=== PATIENT | male | born 1965 | race Hispanic/Latino ===

== ENCOUNTER → 2018-03-16 | Outpatient (CLI) | payer MEDICAID | END | disposition home or self-care (01) | LOC: RAH 09:23 | PROVIDERS: ATTEND Nurse Practitioner Family | DX: M79.671 Pain in right foot (principal); E11.9 Type 2 diabetes mellitus without complications; I10 Essential (primary) hypertension; E78.5 Hyperlipidemia, unspecified; Z87.891 Personal history of nicotine dependence | CPT/HCPCS: 73630 ==

== ENCOUNTER 2018-09-22 20:19 | Emergency (ER) | payer MEDICAID ==
[2018-09-22 20:33] LABS: BASOPHILS % (AUTO) 0.7 % (0.0-5.0); EOSINOPHILS % (AUTO) 1.3 % (0.0-8.0); HEMATOCRIT 43.3 % (42-54); LYMPHOCYTES % (AUTO) 27.5 % (21.0-51.0); MEAN CORPUSCULAR HEMOGLOBIN 28.5 pg (27.0-33.0); MEAN CORPUSCULAR HGB CONC 33.7 g/dL (32.0-36.0); MEAN CORPUSCULAR VOLUME 84.7 fL (79-99); MONOCYTES % (AUTO) 12.7 % (3.0-13.0); NEUTROPHILS % (AUTO) 57.8 % (40.0-77.0); PLATELET COUNT (AUTO) 195 K/uL (130-400); RED BLOOD CELL COUNT(AUTO) 5.11 MIL/uL (4.50-6.20); RED CELL DISTRIBUTION WIDTH 13.7 % (11.0-15.5); WHITE BLOOD COUNT (AUTO) 6.6 K/uL (4.8-10.8)
[2018-09-22] MEDS ORDERED: ASPIRIN 325 MG TABLET ONE (20:39)
[2018-09-22 20:47] LABS: INR 0.91 (0.85-1.15); PARTIAL THROMBOPLASTIN TIME 26.5 SEC (26.3-35.5); PROTHROMBIN TIME 9.6 SEC (9.6-11.6)
[2018-09-22 20:48] LABS: CREATININE 1.1 mg/dL (0.5-1.5); POTASSIUM 3.9 mmol/L (3.5-5.1)
[2018-09-22 20:49] LABS: B-TYPE NATRIURETIC PEPTIDE 24 pg/mL (0-100)
[2018-09-22 20:53] LABS: ALBUMIN 3.6 g/dL (3.5-5.0); BILIRUBIN,TOTAL 0.3 mg/dL (0.2-1.0); TOTAL PROTEIN, SERUM 7.1 g/dL (6.0-8.3)
[2018-09-22 21:25] LABS: APPEARANCE,URINE Clear (CLEAR); BILIRUBIN,URINE Negative (NEGATIVE); COLOR,URINE Yellow (YELLOW); GLUCOSE, URINE (UA) Negative (NEGATIVE); KETONES,URINE Negative (NEGATIVE); LEUKOCYTE ESTERASE ,URINE Negative (NEGATIVE); NITRATE,URINE Negative (NEGATIVE); OCCULT BLOOD,URINE Negative (NEGATIVE); PROTEIN,URINE Negative (NEGATIVE)
[2018-09-22 21:31] LABS: AMPHET/METH SCREEN,URINE NEGATIVE (NEGATIVE); BARBITURATE SCREEN, URINE NEGATIVE (NEGATIVE); BENZODIAZEPINES SCREEN,URINE NEGATIVE (NEGATIVE); CANNABINOID SCREEN,URINE NEGATIVE (NEGATIVE); COCAINE SCREEN,URINE NEGATIVE (NEGATIVE); OPIATE SCREEN,URINE NEGATIVE (NEGATIVE); PHENCYCLIDINE SCREEN,URINE NEGATIVE (NEGATIVE)
[2018-09-22] MEDS ORDERED: HYOSCYAMINE SULFATE 0.125 MG TAB.SUBL SL ONE (21:58)
[2018-09-22] MEDS ORDERED: FAMOTIDINE 20MG TAB 20 MG TAB ONE (21:58)
== END 2018-09-22 22:29 | disposition home or self-care (01) ==
LOC: EDH 20:19
DX: I10 Essential (primary) hypertension (principal); E11.9 Type 2 diabetes mellitus without complications; R10.9 Unspecified abdominal pain; E78.5 Hyperlipidemia, unspecified; Z98.890 Other specified postprocedural states
CPT/HCPCS: 36415; 71045; 76705; 80053; 80305; 81003; 82150; 82550; 83880; 84484; 85025; 85610; 85730; 93005

== ENCOUNTER 2018-11-16 13:18 | Emergency (ER) | payer MEDICAID ==
[2018-11-16] MEDS ORDERED: ASPIRIN 325MG EC TAB 325 MG TABLET.DR PO ONE (13:51)
[2018-11-16] MEDS ORDERED: NITROGLYCERIN 1GM/1 INCH PACKET TD ONE (13:52)
[2018-11-16 14:27] LABS: BASOPHILS % (AUTO) 0.7 % (0.0-5.0); EOSINOPHILS % (AUTO) 1.6 % (0.0-8.0); HEMATOCRIT 42.6 % (42-54); LYMPHOCYTES % (AUTO) 22.4 % (21.0-51.0); MEAN CORPUSCULAR HEMOGLOBIN 29.2 pg (27.0-33.0); MEAN CORPUSCULAR HGB CONC 33.8 g/dL (32.0-36.0); MEAN CORPUSCULAR VOLUME 86.2 fL (79-99); MONOCYTES % (AUTO) 11.8 % (3.0-13.0); NEUTROPHILS % (AUTO) 63.5 % (40.0-77.0); NUCLEATED RED BLOOD CELLS 0.1 % (0.0-0.19); PLATELET COUNT (AUTO) 186 K/uL (130-400); RED BLOOD CELL COUNT(AUTO) 4.94 MIL/uL (4.50-6.20); RED CELL DISTRIBUTION WIDTH 14.1 % (11.0-15.5)
[2018-11-16 14:38] LABS: CREATININE 0.8 mg/dL (0.5-1.5); POTASSIUM 3.8 mmol/L (3.5-5.1)
[2018-11-16 14:40] LABS: INR 0.95 (0.85-1.15); PARTIAL THROMBOPLASTIN TIME 27.7 SEC (26.3-35.5)
[2018-11-16 14:43] LABS: APPEARANCE,URINE Clear (CLEAR); BILIRUBIN,URINE Negative (NEGATIVE); COLOR,URINE Yellow (YELLOW); GLUCOSE, URINE (UA) Negative (NEGATIVE); KETONES,URINE Negative (NEGATIVE); LEUKOCYTE ESTERASE ,URINE Negative (NEGATIVE); NITRATE,URINE Negative (NEGATIVE); OCCULT BLOOD,URINE Negative (NEGATIVE); PROTEIN,URINE Negative (NEGATIVE)
[2018-11-16 14:43] LABS: ALBUMIN 3.6 g/dL (3.5-5.0); BILIRUBIN,TOTAL 0.3 mg/dL (0.2-1.0); TOTAL PROTEIN, SERUM 7.2 g/dL (6.0-8.3)
[2018-11-16 14:59] LABS: B-TYPE NATRIURETIC PEPTIDE 26 pg/mL (0-100)
== END 2018-11-16 16:12 | disposition home or self-care (01) ==
LOC: EDH 13:18
DX: R07.89 Other chest pain (principal); R51 Headache; R06.02 Shortness of breath
CPT/HCPCS: 36415; 71045; 80053; 81003; 82550; 83605; 83880; 84484; 85025; 85610; 85730; 87040; 87804; 93005

== ENCOUNTER 2019-04-25 04:59 | Emergency (ER) | payer MEDICAID ==
[2019-04-25 05:43] LABS: APPEARANCE,URINE Clear (CLEAR); BILIRUBIN,URINE Negative (NEGATIVE); COLOR,URINE Yellow (YELLOW); GLUCOSE, URINE (UA) Negative (NEGATIVE); KETONES,URINE Negative (NEGATIVE); LEUKOCYTE ESTERASE ,URINE Negative (NEGATIVE); NITRATE,URINE Negative (NEGATIVE); OCCULT BLOOD,URINE Negative (NEGATIVE); PROTEIN,URINE Negative (NEGATIVE)
[2019-04-25] MEDS ORDERED: IBUPROFEN 400 MG TABLET ONE (06:09)
[2019-04-25] MEDS ORDERED: DOCUSATE SODIUM 100 MG CAP PO ONE (06:09)
== END 2019-04-25 06:57 | disposition home or self-care (01) ==
LOC: EDH 04:59
DX: K43.9 Ventral hernia without obstruction or gangrene (principal); K59.00 Constipation, unspecified; I10 Essential (primary) hypertension; E78.5 Hyperlipidemia, unspecified; E11.9 Type 2 diabetes mellitus without complications
CPT/HCPCS: 74018; 81003

== ENCOUNTER 2019-06-02 07:22 | Emergency (ER) | payer MEDICAID | END 2019-06-02 10:51 | disposition home or self-care (01) | LOC: EDH 07:22 | DX: S80.01XA Contusion of right knee, initial encounter (principal); E78.5 Hyperlipidemia, unspecified; I10 Essential (primary) hypertension; E11.9 Type 2 diabetes mellitus without complications; W01.0XXA Fall on same level from slipping, tripping and stumbling without subsequent striking against object, initial encounter; Y93.01 Activity, walking, marching and hiking; Y92.89 Other specified places as the place of occurrence of the external cause; Y99.8 Other external cause status | CPT/HCPCS: 73562; 73700 ==

== ENCOUNTER 2019-08-06 13:55 | Emergency (ER) | payer MEDICAID ==
[2019-08-06] MEDS ORDERED: ASPIRIN 325 MG TABLET ONE (14:40)
[2019-08-06 14:44] LABS: BASOPHILS % (AUTO) 0.3 % (0.0-5.0); EOSINOPHILS % (AUTO) 1.4 % (0.0-8.0); HEMATOCRIT 44.2 % (42-54); LYMPHOCYTES % (AUTO) 17.5 % (21.0-51.0); MEAN CORPUSCULAR HEMOGLOBIN 27.7 pg (27.0-33.0); MEAN CORPUSCULAR HGB CONC 32.6 g/dL (32.0-36.0); MONOCYTES % (AUTO) 10.7 % (3.0-13.0); NEUTROPHILS % (AUTO) 69.9 % (40.0-77.0); PLATELET COUNT (AUTO) 193 K/uL (130-400); RED CELL DISTRIBUTION WIDTH 12.9 % (11.0-15.5); WHITE BLOOD COUNT (AUTO) 6.3 K/uL (4.8-10.8)
[2019-08-06 14:56] LABS: CREATININE 0.8 mg/dL (0.5-1.5)
[2019-08-06 14:59] LABS: INR 0.94 (0.85-1.15); PARTIAL THROMBOPLASTIN TIME 26.6 SEC (26.3-35.5); PROTHROMBIN TIME 9.9 SEC (9.6-11.6)
[2019-08-06 15:00] LABS: ALBUMIN 3.6 g/dL (3.5-5.0); BILIRUBIN,TOTAL 0.2 mg/dL (0.2-1.0); TOTAL PROTEIN, SERUM 7.5 g/dL (6.0-8.3)
== END 2019-08-06 16:12 | disposition home or self-care (01) ==
LOC: EDH 13:55
DX: R07.89 Other chest pain (principal); I10 Essential (primary) hypertension; E11.9 Type 2 diabetes mellitus without complications; E78.5 Hyperlipidemia, unspecified; E66.9 Obesity, unspecified
CPT/HCPCS: 36415; 71045; 80053; 82550; 84484; 85025; 85610; 85730; 93005

== ENCOUNTER 2020-07-05 16:32 | Emergency (ER) | payer MEDICAID ==
[2020-07-05 17:14] LABS: BASOPHILS % (AUTO) 0.3 % (0.0-5.0); HEMATOCRIT 47.1 % (42-54); LYMPHOCYTES % (AUTO) 22.3 % (21.0-51.0); MEAN CORPUSCULAR HEMOGLOBIN 27.2 pg (27.0-33.0); MEAN CORPUSCULAR HGB CONC 33.1 g/dL (32.0-36.0); MEAN CORPUSCULAR VOLUME 82.1 fL (79-99); MONOCYTES % (AUTO) 11.9 % (3.0-13.0); NEUTROPHILS % (AUTO) 63.2 % (40.0-77.0); PLATELET COUNT (AUTO) 137 K/uL (130-400); RED BLOOD CELL COUNT(AUTO) 5.74 MIL/uL (4.50-6.20); RED CELL DISTRIBUTION WIDTH 12.4 % (11.0-15.5); WHITE BLOOD COUNT (AUTO) 3.5 K/uL (4.8-10.8)
[2020-07-05 17:33] LABS: CREATININE 0.8 mg/dL (0.5-1.5); POTASSIUM 4.2 mmol/L (3.5-5.1)
[2020-07-05 17:44] LABS: ALBUMIN 3.6 g/dL (3.5-5.0); BILIRUBIN,TOTAL 0.3 mg/dL (0.2-1.0); TOTAL PROTEIN, SERUM 7.9 g/dL (6.0-8.3)
[2020-07-05 18:05] LABS: APPEARANCE,URINE Clear (CLEAR); BILIRUBIN,URINE Negative (NEGATIVE); COLOR,URINE Yellow (YELLOW); GLUCOSE, URINE (UA) >=1000 mg/dL (NEGATIVE); KETONES,URINE Trace mg/dL (NEGATIVE); LEUKOCYTE ESTERASE ,URINE Negative (NEGATIVE); NITRATE,URINE Negative (NEGATIVE); OCCULT BLOOD,URINE Negative (NEGATIVE); PROTEIN,URINE Negative (NEGATIVE)
[2020-07-05 18:32] LABS: BACTERIA,URINE Few /HPF (None Seen); MUCUS,URINE Moderate LPF (None Seen); SQUAMOUS EPITHELIAL CELL,UR Few /HPF (0-2); WBC,URINE 0-1 /HPF (0-1)
[2020-07-05] MEDS ORDERED: ACETAMINOPHEN 325 MG TAB ONE (18:41)
[2020-07-05] MEDS ORDERED: AZITHROMYCIN 250 MG TABLET PO ONE (19:33)
== END 2020-07-05 20:07 | disposition home or self-care (01) ==
LOC: EDH 16:32
DX: U07.1 COVID-19 (principal); I10 Essential (primary) hypertension; E78.5 Hyperlipidemia, unspecified; E11.9 Type 2 diabetes mellitus without complications; E66.01 Morbid (severe) obesity due to excess calories; Z68.44 Body mass index [BMI] 60.0-69.9, adult; Z87.891 Personal history of nicotine dependence
CPT/HCPCS: 36415; 71045; 80053; 81001; 84484; 85025; 87426; 93005

== ENCOUNTER 2020-10-23 08:07 | Emergency (ER) | payer MEDICAID ==
[2020-10-23] MEDS ORDERED: KETOROLAC TROMETHAMINE 60 MG/2 ML VIAL ONE (08:53)
[2020-10-23] MEDS ORDERED: ACETAMINOPHEN EXTRA STRENGTH 500 MG TABLET ONE (08:54)
[2020-10-23] MEDS ORDERED: LIDOCAINE 5% TOPICAL PATCH TP ONE (09:49)
== END 2020-10-23 10:10 | disposition home or self-care (01) ==
LOC: EDH 08:07
DX: M79.651 Pain in right thigh (principal); E11.9 Type 2 diabetes mellitus without complications; E78.5 Hyperlipidemia, unspecified; I10 Essential (primary) hypertension
CPT/HCPCS: 73502; 96372; 99283; J1885

== ENCOUNTER 2021-09-22 22:08 | Emergency (ER) | payer MEDICAID ==
[~2021-09-22] VITALS: Ht 167.6 cm; Wt 177.4 kg
[2021-09-22] MEDS: 0.9%NACL 1000ML 1,000 ML IV ONE (22:57)
[2021-09-22 23:01] LABS: BASOPHILS % (AUTO) 0.3 % (0.0-5.0); EOSINOPHILS % (AUTO) 1.2 % (0.0-8.0); LYMPHOCYTES % (AUTO) 29.3 % (21.0-51.0); MEAN CORPUSCULAR HEMOGLOBIN 27.4 pg (27.0-33.0); MEAN CORPUSCULAR VOLUME 82.9 fL (79-99); MONOCYTES % (AUTO) 11.7 % (3.0-13.0); NEUTROPHILS % (AUTO) 57.3 % (40.0-77.0); PLATELET COUNT (AUTO) 193 K/uL (130-400); RED BLOOD CELL COUNT(AUTO) 5.55 MIL/uL (4.50-6.20); RED CELL DISTRIBUTION WIDTH 12.7 % (11.0-15.5); WHITE BLOOD COUNT (AUTO) 6.5 K/uL (4.8-10.8)
[2021-09-22 23:05] LABS: APPEARANCE,URINE Clear (CLEAR); BILIRUBIN,URINE Negative (NEGATIVE); COLOR,URINE Yellow (YELLOW); GLUCOSE, URINE (UA) Negative (NEGATIVE); KETONES,URINE Negative (NEGATIVE); LEUKOCYTE ESTERASE ,URINE Negative (NEGATIVE); NITRATE,URINE Negative (NEGATIVE); OCCULT BLOOD,URINE Negative (NEGATIVE); PH,URINE 5.5 (5.0-8.0); PROTEIN,URINE Negative (NEGATIVE)
[2021-09-22 23:20] LABS: CREATININE 0.8 mg/dL (0.5-1.5); POTASSIUM 4.1 mmol/L (3.5-5.1)
[2021-09-22 23:24] LABS: ALBUMIN 3.5 g/dL (3.5-5.0); BILIRUBIN,TOTAL 0.3 mg/dL (0.2-1.0); TOTAL PROTEIN, SERUM 7.3 g/dL (6.0-8.3)
[2021-09-22] MEDS ORDERED: IOHEXOL 350 MG/ML 100ML INFUS..BTL IV ONE (23:32)
[2021-09-23] MEDS: MORPHINE 4 MG SYG IVP ONE (00:06)
[2021-09-23] MEDS: ONDANSETRON 4MG INJ IVP ONE (00:06)
[2021-09-23] MEDS ORDERED: HYOS0.124 SL (01:06)
[2021-09-23] MEDS ORDERED: FAMO-136 PO (01:06)
[2021-09-23 01:24] VITALS: BP 110/66
== END 2021-09-23 01:27 | disposition home or self-care (01) ==
LOC: EDH 22:08
DX: R10.33 Periumbilical pain (principal); E11.9 Type 2 diabetes mellitus without complications; I10 Essential (primary) hypertension
CPT/HCPCS: 36415; 74177; 80053; 81003; 83690; 85025; 96374; 96375; 99285; J2270; J2405; Q9967

== ENCOUNTER 2021-12-01 16:26 | Emergency (ER) | payer MEDICAID ==
[~2021-12-01] VITALS: Ht 167.6 cm; Wt 155.6 kg
[~2021-12-01 16:26] MED LIST: FAMO-136 PO; HYOS0.124 SL
[2021-12-01] MEDS ORDERED: ONDANSETRON 4MG INJ IVP ONE (17:00)
[2021-12-01] MEDS ORDERED: KETOROLAC 30MG VIAL (30MG/ML) IVP ONE (17:00)
[2021-12-01 17:15] LABS: BASOPHILS % (AUTO) 0.5 % (0.0-5.0); EOSINOPHILS % (AUTO) 1.1 % (0.0-8.0); HEMATOCRIT 47.2 % (42-54); LYMPHOCYTES % (AUTO) 27.3 % (21.0-51.0); MEAN CORPUSCULAR HEMOGLOBIN 27.8 pg (27.0-33.0); MEAN CORPUSCULAR HGB CONC 33.5 g/dL (32.0-36.0); MEAN CORPUSCULAR VOLUME 83.1 fL (79-99); MONOCYTES % (AUTO) 10.8 % (3.0-13.0); NEUTROPHILS % (AUTO) 59.8 % (40.0-77.0); PLATELET COUNT (AUTO) 207 K/uL (130-400); RED BLOOD CELL COUNT(AUTO) 5.68 MIL/uL (4.50-6.20); RED CELL DISTRIBUTION WIDTH 12.9 % (11.0-15.5); WHITE BLOOD COUNT (AUTO) 6.5 K/uL (4.8-10.8)
[2021-12-01 17:16] LABS: APPEARANCE,URINE Clear (CLEAR); BILIRUBIN,URINE Negative (NEGATIVE); COLOR,URINE Yellow (YELLOW); GLUCOSE, URINE (UA) >=1000 mg/dL (NEGATIVE); KETONES,URINE Negative (NEGATIVE); LEUKOCYTE ESTERASE ,URINE Negative (NEGATIVE); NITRATE,URINE Negative (NEGATIVE); OCCULT BLOOD,URINE Negative (NEGATIVE); PROTEIN,URINE Negative (NEGATIVE); UROBILINOGEN,URINE 0.2 mg/dL (0.2-1.0)
[2021-12-01 17:24] LABS: BACTERIA,URINE None Seen /HPF (None Seen); RBC,URINE 0-1 /HPF (0-1); WBC,URINE 0-1 /HPF (0-1)
[2021-12-01 17:26] LABS: SQUAMOUS EPITHELIAL CELL,UR Few /HPF (0-2)
[2021-12-01 17:29] LABS: CREATININE 0.9 mg/dL (0.5-1.5)
[2021-12-01 17:38] LABS: ALBUMIN 3.8 g/dL (3.5-5.0); BILIRUBIN,TOTAL 0.3 mg/dL (0.2-1.0); TOTAL PROTEIN, SERUM 7.3 g/dL (6.0-8.3)
[2021-12-01] MEDS ORDERED: ACET-2247 PO (17:55)
[2021-12-01] MEDS ORDERED: CYCL10TA16 PO (17:55)
[2021-12-01 18:17] VITALS: BP 142/80
== END 2021-12-01 18:19 | disposition home or self-care (01) ==
LOC: EDH 16:26
DX: S29.012A Strain of muscle and tendon of back wall of thorax, initial encounter (principal); R10.9 Unspecified abdominal pain; E11.9 Type 2 diabetes mellitus without complications; I10 Essential (primary) hypertension; Z98.890 Other specified postprocedural states; Z79.899 Other long term (current) drug therapy; X58.XXXA Exposure to other specified factors, initial encounter; Y93.89 Activity, other specified; Y92.89 Other specified places as the place of occurrence of the external cause; Y99.8 Other external cause status
CPT/HCPCS: 36415; 74176; 80053; 81001; 83690; 84484; 85025; 96374; 96375; 99284; J1885; J2405

== ENCOUNTER → 2022-02-28 | Outpatient (CLI) | payer MEDICAID ==
[~2022-02-28] MED LIST changes: +ACET-2247 PO; +CYCL10TA16 PO; +NAPR-1180 PO
[2022-02-28 12:21] LABS: BASOPHILS % (AUTO) 0.3 % (0.0-5.0); HEMATOCRIT 46.9 % (42-54); LYMPHOCYTES % (AUTO) 27.1 % (21.0-51.0); MEAN CORPUSCULAR HEMOGLOBIN 28.2 pg (27.0-33.0); MEAN CORPUSCULAR HGB CONC 34.1 g/dL (32.0-36.0); MEAN CORPUSCULAR VOLUME 82.6 fL (79-99); MONOCYTES % (AUTO) 10.3 % (3.0-13.0); PLATELET COUNT (AUTO) 207 K/uL (130-400); RED BLOOD CELL COUNT(AUTO) 5.68 MIL/uL (4.50-6.20); WHITE BLOOD COUNT (AUTO) 5.8 K/uL (4.8-10.8)
[2022-02-28 12:35] LABS: ALBUMIN 3.6 g/dL (3.5-5.0); CREATININE 0.8 mg/dL (0.5-1.5); TOTAL PROTEIN, SERUM 7.3 g/dL (6.0-8.3)
== END | disposition home or self-care (01) ==
LOC: LAB 11:30
PROVIDERS: ATTEND Internal Medicine Cardiovascular Disease
DX: I10 Essential (primary) hypertension (principal); R55 Syncope and collapse; G47.33 Obstructive sleep apnea (adult) (pediatric); E11.59 Type 2 diabetes mellitus with other circulatory complications; R53.83 Other fatigue
CPT/HCPCS: 36415; 80053; 80061; 85025

== ENCOUNTER → 2022-04-10 | Outpatient (CLI) | payer MEDICAID ==
[2022-04-10 12:22] LABS: BASOPHILS % (AUTO) 0.4 % (0.0-5.0); EOSINOPHILS % (AUTO) 1.1 % (0.0-8.0); HEMATOCRIT 46.4 % (42-54); LYMPHOCYTES % (AUTO) 22.7 % (21.0-51.0); MEAN CORPUSCULAR HEMOGLOBIN 27.4 pg (27.0-33.0); MEAN CORPUSCULAR VOLUME 83.2 fL (79-99); MONOCYTES % (AUTO) 11.9 % (3.0-13.0); NEUTROPHILS % (AUTO) 63.5 % (40.0-77.0); PLATELET COUNT (AUTO) 211 K/uL (130-400); RED BLOOD CELL COUNT(AUTO) 5.58 MIL/uL (4.50-6.20); WHITE BLOOD COUNT (AUTO) 5.4 K/uL (4.8-10.8)
[2022-04-10 13:14] LABS: ALBUMIN 3.5 g/dL (3.5-5.0); CREATININE 0.8 mg/dL (0.5-1.5); POTASSIUM 4.1 mmol/L (3.5-5.1); TOTAL PROTEIN, SERUM 7.4 g/dL (6.0-8.3)
== END | disposition home or self-care (01) ==
LOC: LAB 08:31
PROVIDERS: ATTEND Internal Medicine Cardiovascular Disease
DX: I10 Essential (primary) hypertension (principal); E11.59 Type 2 diabetes mellitus with other circulatory complications; R55 Syncope and collapse; G47.33 Obstructive sleep apnea (adult) (pediatric)
CPT/HCPCS: 36415; 80053; 80061; 85025

== ENCOUNTER 2022-10-20 19:27 | Emergency (ER) | payer MEDICAID ==
[~2022-10-20] VITALS: Ht 167.6 cm; Wt 168.3 kg
[2022-10-20] MEDS ORDERED: KETOROLAC 15MG/ML VIAL (15MG/ML) IV ONE (20:30)
[2022-10-20] MEDS ORDERED: MORPHINE 2 MG SYG IVP ONE (20:30)
[2022-10-20] MEDS ORDERED: ONDANSETRON 4MG INJ IVP ONE (20:30)
[2022-10-20 21:12] LABS: APPEARANCE,URINE CLEAR (CLEAR); BASOPHILS % (AUTO) 0.5 % (0.0-5.0); BILIRUBIN,URINE NEGATIVE (NEGATIVE); COLOR,URINE LIGHT-YELLOW (YELLOW); EOSINOPHILS % (AUTO) 1.3 % (0.0-8.0); GLUCOSE, URINE (UA) NEGATIVE (NEGATIVE); HEMATOCRIT 49.2 % (42-54); KETONES,URINE NEGATIVE (NEGATIVE); LEUKOCYTE ESTERASE ,URINE NEGATIVE Leu/uL (NEGATIVE); LYMPHOCYTES % (AUTO) 26.2 % (21.0-51.0); MEAN CORPUSCULAR HEMOGLOBIN 27.3 pg (27.0-33.0); MEAN CORPUSCULAR HGB CONC 32.9 g/dL (32.0-36.0); MEAN CORPUSCULAR VOLUME 82.8 fL (79-99); MONOCYTES % (AUTO) 9.9 % (3.0-13.0); NITRATE,URINE NEGATIVE (NEGATIVE); OCCULT BLOOD,URINE NEGATIVE (NEGATIVE); PLATELET COUNT (AUTO) 173 K/uL (130-400); PROTEIN,URINE NEGATIVE (NEGATIVE); RED BLOOD CELL COUNT(AUTO) 5.94 MIL/uL (4.50-6.20); RED CELL DISTRIBUTION WIDTH 13.2 % (11.0-15.5); UROBILINOGEN,URINE 0.2 mg/dL (0.2-1.0); WHITE BLOOD COUNT (AUTO) 7.4 K/uL (4.8-10.8)
[2022-10-20 21:43] LABS: CREATININE 0.8 mg/dL (0.5-1.5); POTASSIUM 3.8 mmol/L (3.5-5.1)
[2022-10-20 21:47] LABS: ALBUMIN 3.7 g/dL (3.5-5.0); TOTAL PROTEIN, SERUM 7.4 g/dL (6.0-8.3)
[2022-10-20 22:00] VITALS: BP 139/82
[2022-10-20] MEDS ORDERED: OMEP40CA21 PO (22:10)
[2022-10-20] MEDS ORDERED: IBUP-1493 PO (22:10)
== END 2022-10-20 22:55 | disposition home or self-care (01) ==
LOC: EDH 19:27
DX: R10.11 Right upper quadrant pain (principal); I10 Essential (primary) hypertension; E11.9 Type 2 diabetes mellitus without complications; E78.00 Pure hypercholesterolemia, unspecified; E66.09 Other obesity due to excess calories; Z68.43 Body mass index [BMI] 50.0-59.9, adult; Z79.899 Other long term (current) drug therapy; Z98.890 Other specified postprocedural states
CPT/HCPCS: 99285; 96374; 76705; 71045; 96375; 82150; 82550; 80053; 83690; 85025; 81003; 36415; J2405; J1885

== ENCOUNTER 2024-01-03 07:56 | Emergency (ER) | payer MEDICAID ==
[~2024-01-03] VITALS: Ht 167.6 cm; Wt 167.4 kg
[~2024-01-03 07:56] MED LIST changes: +IBUP-1493 PO; +OMEP40CA21 PO
[2024-01-03] MEDS: KETOROLAC 60 MG VIAL (30MG/ML) IM ONE (09:21)
[2024-01-03] MEDS: SOLU-MEDROL 125MG VIAL IM ONE (09:22)
[2024-01-03] MEDS: ORPHENADRINE 60MG/2ML IM ONE (09:22)
[2024-01-03 09:50] LABS: CREATININE 0.7 mg/dL (0.5-1.3)
[2024-01-03] MEDS ORDERED: CYCL-309 PO (11:05)
[2024-01-03] MEDS ORDERED: IBUP-2077 PO (11:05)
[2024-01-03 11:12] VITALS: BP 119/74; PULSE 65; RESP 18; O2SAT 97
== END 2024-01-03 11:13 | disposition home or self-care (01) ==
LOC: EDH 07:56
DX: M54.41 Lumbago with sciatica, right side (principal); E11.65 Type 2 diabetes mellitus with hyperglycemia; E66.01 Morbid (severe) obesity due to excess calories; I10 Essential (primary) hypertension; E11.9 Type 2 diabetes mellitus without complications; G89.29 Other chronic pain; M19.90 Unspecified osteoarthritis, unspecified site; E78.00 Pure hypercholesterolemia, unspecified; Z79.899 Other long term (current) drug therapy; Z98.890 Other specified postprocedural states; Z68.43 Body mass index [BMI] 50.0-59.9, adult
CPT/HCPCS: 99284; 80048; 36415; 96372 ×3; J2919; J1885; J2360

== ENCOUNTER 2024-05-27 08:17 | Emergency (ER) | payer MEDICAID ==
[~2024-05-27] VITALS: Ht 172.7 cm; Wt 161.7 kg
[~2024-05-27 08:17] MED LIST changes: +CYCL-309 PO; +IBUP-2077 PO
[2024-05-27 08:19] VITALS: BP 143/90; PULSE 79; RESP 16; TEMP 98.8; O2SAT 98
--- NOTE | 2024-05-27 08:25 | NUR ---
PT JUST NOW PLACED IN MY ED BED HALLWAY A1
[2024-05-27] MEDS: ketOROlac 60 MG VIAL (30MG/ML) IM ONE (09:07)
[2024-05-27] MEDS: diazePAM 5 MG/ML 2 ML SYG IM ONE (09:08)
--- NOTE | 2024-05-27 09:25 | NUR ---
PT JUST RETURNED FROM RADIOLOGY
[2024-05-27] MEDS ORDERED: LIDOP TP (10:02)
--- NOTE | 2024-05-27 10:02 | ERN ---
ED Note History of Present Illness Stated Complaint: LOWER BACK PAIN Chief Complaint: Low Back Pain/Injury Time Seen by MD: 08:32 Dictation: 58-year-old male with left-sided low back pain intermittent chronic, has been seen in the past few months for similar episodes. Follow up with his primary care doctor but says he has had no relief. Patient denies any fever recent surgeries no urinary incontinence or retention, no focal weakness. Pain is currently 8/10 Allergies: Coded Allergies: No Known Allergies (Unverified Allergy, Unknown, 04/25/19) Home Meds Active Scripts Ibuprofen (Ibuprofen 800 mg Tab) 800 Mg Tab, 800 MG PO Q6H PRN for PAIN, #30 TAB 0 Refills Prov:KIMBERLY LANGE MD 01/03/24 Cyclobenzaprine HCl (Cyclobenzaprine HCl) 10 Mg Tablet, 10 MG PO HS, #7 TAB 0 Refills Prov:KIMBERLY LANGE MD 01/03/24 Ibuprofen (Motrin/Advil) 800 Mg Tab, 800 MG PO TID, #30 TAB Prov:KIET CALABRESE MD 10/20/22 Omeprazole (Omeprazole) 40 Mg Capsule.dr, 40 MG PO DAILY, #30 CAP Prov:KIET CALABRESE MD 10/20/22 Cyclobenzaprine HCl (Flexeril) 10 Mg Tab, 10 MG PO BID, #30 TAB Prov:CISCO MARCIAL 12/11/21 Naproxen (Naprosyn) 500 Mg Tablet, 500 MG PO BIDPC, #30 TAB Prov:CISCO MARCIAL 12/11/21 Acetaminophen (Tylenol) 325 Mg Tablet, 650 MG PO Q4HPRN, #50 TAB Prov:CISCO MARCIAL 12/01/21 Cyclobenzaprine HCl (Flexeril) 10 Mg Tab, 10 MG PO BID, #30 TAB Prov:CISCO MARCIAL 12/01/21 Hyoscyamine Sulfate (Levsin-Sl) 0.125 Mg Tab.subl, 0.125 MG SL TID PRN for abd p, #15 TAB.SL 0 Refills Prov:KIMBERLY LANGE MD 09/23/21 Famotidine (Pepcid) 20 Mg Tablet, 20 MG PO BID, #30 TAB 0 Refills Prov:KIMBERLY LANGE MD 09/23/21 Past Medical History Past Medical History: Arthritis, Diabetes-Type II, High Cholesterol, Hypertension Additional Past Medical Hx: MR Surgical History: Other Surgical History Other: LT SHOULDER SX Family History: Negative Social History: Negative Review of System Dictation Constitutional: Negative for fever,chills, and weight loss Eyes: Negative for injury, pain,redness, and discharge ENT: Negative for injury,pain or swelling Cardiovascular: Negative for chest pain, palpitations, and edema Respiratory: Negative for shortness of breath, cough, and wheezing, Abdomen/GI: Negative for abdominal pain, nausea, vomiting, diarrhea, and constip ation Back: Negative for injury and pain : Negative for injury, bleeding and discharge MS/Extremity: Per HPI Skin: Negative for rash, and discoloration Neuro: Per HPI Psych: Negative for suicide ideation, homicidal ideation, and hallucinations Initial Vital Sign VS Vital Signs Date Time Temp Pulse Resp B/P (MAP) Pulse Ox O2 Delivery O2 Flow Rate FiO2 05/27/24 08:19 98.8 79 16 143/90 98 0 05/27/24 08:19 Room Air* 21 Physical Exam Dictation General: awake, alert, NAD Head/Face: Normocephalic, atraumatic Eyes: PERRL, EOMI, vision at baseline ENT: oral cavity clear, TMs clear, no signs of infection Neck: Trachea midline, supple, no nuchal rigidity Cardiovascular: RRR, normal S1/S2, No MRGs, no JVD Respiratory: CTAB, no respiratory distress, No rales or wheezes Abdomen: Soft, non-tender, non-distended, normal bowel sounds, no guarding or rebound. Skin: Warm, dry, normal turgor, no rash MS/Extremity: Pulses equal, no cyanosis, neurovascular intact, FROM Neuro: COAx4, GCS 15, strength 5/5, CN 2-12 intact, normal cerebellar exam, normal gait, Psych: Normal behavior, mood, and affect normal ED Course ED Course Orders Procedure Category Date Status Time Lumbar Spine 2-3vws RAD 05/27/24 Taken 08:59 Ketorolac 60mg/2ml PHA 05/27/24 Complete (Toradol 60mg/2ml) 09:00 Diazepam 5 Mg/Ml 2 Ml PHA 05/27/24 Complete Syg (Valium 5 Mg/M 09:00 Current Medications Medications (Trade) Dose Ordered Sig/Evelyn Route PRN Reason Start Time Stop Time Status Last Admin Dose Admin Diazepam (VALium 5 MG/ML 2 ML SYG) 5 mg ONCE ONCE IM 05/27/24 09:00 05/27/24 09:01 DC 05/27/24 09:08 Ketorolac Tromethamine (toRADol 60MG/ 2ML) 30 mg ONCE ONCE IM 05/27/24 09:00 05/27/24 09:01 DC 05/27/24 09:07 Vital Signs Date Time Temp Pulse Resp B/P (MAP) Pulse Ox O2 Delivery O2 Flow Rate FiO2 05/27/24 08:19 98.8 94 16 143/90 98 Room Air* 0 21 05/27/24 08:19 98.8 79 16 143/90 98 0 Medical Decision Making MDM MDM: Differential diagnosis: Rationale: Tests considered and ordered secondary to shared decision making include: Previous outside records reviewed: Old ER visits. Risk of complication and/or morbidity or mortality of patient management: None Medications-Per medication reconciliation Need for hospitalization: Patient does not meet criteria for hospitalization. Need for emergency major/minor surgery: No There are no social concerns with this patient. Prescription drug management Prescriptions will include symptomatic care Patient's prior external medical records from other ER visits were reviewed by me as indicated. Prior testing and results from previous visits were reviewed. Prior tests were taken into account with medical decision making and resource utilization, independent historian/historians were used to obtain complete medical history. I independently interpreted the test that were performed, results were reviewed by me and considered findings on radiology if ordered. Medical management and examination interpretation discussions were had by me with other qualified healthcare professionals as indicated for the patient's care. 56-year-old male with low back pain lumbar radiculopathy no focal deficits no signs of any acute spine issue, x-ray was reviewed and interpreted by me independently, no acute process was noted patient does have some signs of arthritis and spinal listhesis antegrade on x-ray. Prescriptions given stable for outpatient follow up. DX & DISP Disposition: Discharge Departure Impression: Primary Impression: Sciatica Additional Impression: Acute low back pain Condition: Stable Scripts Lidocaine (Lidoderm Patch 5%) 5 % Patch 1 PATCH TP DAILY for 5 Days, #5 PATCH 0 Refills may wear up to 12 hours Prov: BALA ASKEW MD 05/27/24 Referrals: ELLEN MEDINA (PCP) BALA ASKEW MD May 27, 2024 10:02
--- NOTE | 2024-05-27 11:29 | HMCIMG ---
LUMBAR SPINE 2-3VWS HISTORY: Low back pain COMPARISON: None FINDINGS: 3 images of lumbar spine were obtained. Minimal grade 1 anterolisthesis is seen at the L4-L5 level. Disc space narrowing is seen at the L5-S1 level. There is straightening of normal lordotic curvature which may be related to muscle spasm or positioning. No loss of vertebral height is seen. No fracture or dislocation is seen. Degenerative changes are seen. IMPRESSION: 1. No fracture is seen.
== END 2024-05-27 10:22 | disposition home or self-care (01) ==
LOC: EDH 08:17
DX: M54.42 Lumbago with sciatica, left side (principal); E11.9 Type 2 diabetes mellitus without complications; E78.00 Pure hypercholesterolemia, unspecified; I10 Essential (primary) hypertension; M19.90 Unspecified osteoarthritis, unspecified site; Z79.1 Long term (current) use of non-steroidal anti-inflammatories (NSAID); Z79.899 Other long term (current) drug therapy
CPT/HCPCS: 99284; 72100; 96372 ×2; J3360; J1885

== ENCOUNTER 2024-11-04 13:16 | Inpatient (IN) | payer MEDICAID ==
[~2024-11-04] VITALS: Ht 167.6 cm; Wt 160.7 kg
[~2024-11-04 13:16] MED LIST changes: +LIDOP TP
--- NOTE | 2024-11-04 14:07 | EKG ---
[facility] Test Date: 2024-11-04 Test Time: 13:23:15 Pat Name: ALYSE ODONNELL Department: [facility] Room: 229 Gender: M Gallery Intern: [id number] : 1965 Requested By: BAM HUYNH Order Number: [id number] Reading MD: Kyleigh Carrion Measurements Intervals [place] Rate: 122 P: 57 WI: 147 QRS: -52 QRSD: 91 T: 95 QT: 319 QTc: 455 Interpretive Statements Sinus tachycardia Left anterior fascicular block LVH with secondary repolarization abnormality Compared to ECG 07/05/2020 16:43:09 Left anterior fascicular block now present Left ventricular hypertrophy now present Early repolarization now present Sinus rhythm no longer present Left-axis deviation no longer present Electronically Signed On 11-05-2024 18:39:30 CDT by Kyleigh Carrion Please click the below link to view image of tracing.
--- NOTE | 2024-11-04 14:10 | ERN ---
General Chief Complaint: Weakness Stated Complaint: GBW Time Seen by MD: 13:31 Source: patient History of Present Illness Initial Comments Patient is a 59-year-old gentleman coming in due to generalized body weakness and shakiness. Patient states that he does not know why he feels the way he does but states he has a no symptoms other than generalized body weakness and chills. Allergies: Coded Allergies: No Known Allergies (Unverified Allergy, Unknown, 04/25/19) Home Meds Active Scripts Lidocaine (Lidoderm Patch 5%) 5 % Patch, 1 PATCH TP DAILY for 5 Days, #5 PATCH 0 Refills may wear up to 12 hours Prov:BALA ASKEW MD 05/27/24 Ibuprofen (Ibuprofen 800 mg Tab) 800 Mg Tab, 800 MG PO Q6H PRN for PAIN, #30 TAB 0 Refills Prov:KIMBERLY LANGE MD 01/03/24 Cyclobenzaprine HCl (Cyclobenzaprine HCl) 10 Mg Tablet, 10 MG PO HS, #7 TAB 0 Refills Prov:KIMBERLY LANGE MD 01/03/24 Ibuprofen (Motrin/Advil) 800 Mg Tab, 800 MG PO TID, #30 TAB Prov:KIET CALABRESE MD 10/20/22 Omeprazole (Omeprazole) 40 Mg Capsule.dr, 40 MG PO DAILY, #30 CAP Prov:KIET CALABRESE MD 10/20/22 Cyclobenzaprine HCl (Flexeril) 10 Mg Tab, 10 MG PO BID, #30 TAB Prov:CISCO MARCIAL 12/11/21 Naproxen (Naprosyn) 500 Mg Tablet, 500 MG PO BIDPC, #30 TAB Prov:CISCO MARCIAL 12/11/21 Acetaminophen (Tylenol) 325 Mg Tablet, 650 MG PO Q4HPRN, #50 TAB Prov:CISCO MARCIAL 12/01/21 Cyclobenzaprine HCl (Flexeril) 10 Mg Tab, 10 MG PO BID, #30 TAB Prov:CISCO MARCIAL 12/01/21 Hyoscyamine Sulfate (Levsin-Sl) 0.125 Mg Tab.subl, 0.125 MG SL TID PRN for abd p, #15 TAB.SL 0 Refills Prov:KIMBERLY LANGE MD 09/23/21 Famotidine (Pepcid) 20 Mg Tablet, 20 MG PO BID, #30 TAB 0 Refills Prov:KIMBERLY LANGE MD 09/23/21 Past Medical History Past Medical History: Diabetes-Type II, Hypertension Medical History Other: MR Past Surgical History: None Surgical History Other: LT SHOULDER SX Family History Family History: Negative Social History Social History: Negative ROS Dictation CONSTITUTIONAL: No chills, no fever, weakness, no diaphoresis, malaise. HEAD/FACE: No signs of trauma. EENT: No eye pain, no blurred vision, no tearing, no double vision, no ear pain, no ear discharge, no nose pain, no nasal congestion, no throat pain, no throat swelling, no mouth pain. RESPIRATORY: No cough, no orthopnea, no SOB, no stridor, no wheezing. CARDIOVASCULAR: No chest pain, no edema, no palpitations, no syncope. GASTROINTESTINAL/ABDOMINAL: No abdominal pain, no constipation, no diarrhea, no nausea, no vomiting. GENITOURINARY: No abnormal discharge, no dysuria, no frequent urination, no hematuria. No complaints of pain in the genitals. MUSCULOSKELETAL: No back pain, no gout, no joint pain, no joint swelling, no muscle pain, no muscle stiffness, no neck pain. INTEGUMENTARY: No change in color, no change in hair/nails, no dryness, no lesion, no lumps, no rash. NEUROLOGICAL/PSYCH: No anxiety, not depressed, no emotional problem, no headache, no numbness, no pre-existing deficit, no history of seizures, no tremors, no weakness. HEMATOLOGIC/LYMPHATIC: Not anemic, no history of blood clots, no apparent ble eding, no bruising, glands not swollen. All Systems Negative, Except as Noted. Physical Exam Physical Exam Dictation VITAL SIGNS: Reviewed. GENERAL APPEARANCE: Alert, oriented x3, acute distress, obese. HEAD AND FACE: Non-traumatic. EYES: PERRL, pink conjunctivas, eyelid no trauma, anterior chamber clear. EARS: Pinnas intact and no signs of trauma or erythema. Ear canals clear and no discharge. TMs no erythema. NOSE: No discharge, no bleeding. OROPHARYNX: Mouth normal, teeth no caries, tongue pink. Pharynx clear, no erythema. Tonsils no exudates, no abscesses noted. Mucous membrane moist. NECK: Supple, non-tender, no thyromegaly, no masses, no JVD, no bruits. BREAST: Deferred. CHEST: No tenderness, no crepitus, no paradoxical movement, no retractions. LUNGS: Clear, well-ventilated, symmetric, no rales, no wheezing, no rhonchi, no stridor, good breath sounds bilaterally. HEART: Regular rate, regular rhythm, no murmur, no gallops. VASCULAR: No peripheral edema. ABDOMEN: Soft, positive bowel sounds, nondistended, no guarding, nontender, no rebound, no masses no hepatomegaly, no splenomegaly, no Kelley's sign, no hernias. RECTAL: Deferred. GENITAL: Deferred. NEUROLOGICAL: Normal speech, gross motor function intact, gross sensory function intact. MUSCULOSKELETAL: Neck nontender, full range of motion, back nontender, full range of motion. EXTREMITIES: Nontender, full range of motion. SKIN: Color pink, dry, no turgor, no rash, no lacerations, no abrasions, no contusions. LYMPHATICS: Deferred. Results Laboratory and Microbiology Lab and Micro Result Laboratory Tests Test 11/04/24 14:45 White Blood Count 7.3 K/uL (4.8-10.8) Red Blood Count 5.80 MIL/uL (4.50-6.20) Hemoglobin 16.5 g/dL (14.0-18.0) Hematocrit 48.5 % (42-54) Mean Corpuscular Volume 83.6 fL (79-99) Mean Corpuscular Hemoglobin 28.4 pg (27.0-33.0) Mean Corpuscular Hemoglobin Concent 34.0 g/dL (32.0-36.0) Red Cell Distribution Width 12.7 % (11.0-15.5) Platelet Count 158 K/uL (130-400) Mean Platelet Volume 8.9 fL (7.5-10.5) Immature Granulocyte % (Auto) 0.5 % (0-1) Neutrophils (%) (Auto) 84.9 % (40.0-77.0) H Lymphocytes (%) (Auto) 5.6 % (21.0-51.0) L Monocytes (%) (Auto) 8.7 % (3.0-13.0) Eosinophils (%) (Auto) 0.0 % (0.0-8.0) Basophils (%) (Auto) 0.3 % (0.0-5.0) Neutrophils # (Auto) 6.2 K/uL (1.8-7.7) Lymphocytes # (Auto) 0.4 K/uL (1.0-4.8) L Monocytes # (Auto) 0.6 K/uL (0.1-1.0) Eosinophils # (Auto) 0.00 K/uL (0.00-0.70) Basophils # (Auto) 0.02 K/uL (0.00-0.20) Absolute Immature Granulocyte (auto 0.04 K/uL (0-1) Nucleated Red Blood Cells 0.0 % (0.0-0.19) Prothrombin Time 11.3 SEC (9.6-11.6) Prothromb Time International Ratio 1.07 (0.85-1.15) Activated Partial Thromboplast Time 31.0 SEC (26.3-35.5) Urine Color YELLOW (YELLOW) Urine Appearance CLEAR (CLEAR) Urine pH 5.5 (5.0-8.0) Urine Specific [place] 1.029 (1.001-1.031) Urine Protein 20 mg/dL (NEGATIVE) H Urine Glucose (UA) >=1000 mg/dL (NEGATIVE) H Urine Ketones 5 mg/dL (NEGATIVE) H Urine Occult Blood NEGATIVE (NEGATIVE) Urine Nitrate NEGATIVE (NEGATIVE) Urine Bilirubin NEGATIVE mg/dL (NEGATIVE) Urine Urobilinogen 0.2 mg/dL (0.2-1.0) Urine Leukocyte Esterase 75 Jim/uL (NEGATIVE) H Urine RBC 2-5 /HPF (0-1) H Urine WBC 2-5 /HPF (0-1) H Urine Squamous Epithelial Cells FEW /HPF (0-2) Urine Bacteria RARE /HPF (None Seen) Urine Yeast RARE /HPF (None Seen) Sodium Level 136 mmol/L (136-145) Potassium Level 3.2 mmol/L (3.5-5.1) L Chloride Level 98 mmol/L (101-111) L Carbon Dioxide Level 21 mmol/L (21-32) Blood Urea Nitrogen 15 mg/dL (7-18) Creatinine 1.1 mg/dL (0.5-1.3) Glomerular Filtration Rate Calc 77 mL/min (>90) Random Glucose 193 mg/dL (70-105) H Lactic Acid Level 3.4 mmol/L (0.8-2.5) H Total Calcium 8.3 mg/dL (8.5-10.1) L Total Creatine Kinase 110 U/L (21-232) # Troponin I High Sensitivity 18.4 ng/L (4-75) Procalcitonin 18.89 ng/mL (0.05-0.5) H Labs Reviewed?: Yes EKG/XRAY/US/CT/MRI EKG Comment 11/04/2024 time 1:23 p.m. Ventricular rate 122 Sinus tachycardia [place] [address] wave elevation or depression X-RAY Comment [facility] [address] [place] [id number] IMAGING REPORT Signed PATIENT: ALYSE ODONNELL MR#: [id number] : 1965 SEX: M AGE: 59 LOCATION: [facility] ORDER 02 STATUS: REG ER REPORT#: [id number] SERVICE 140 REASON: cp ORDERING PHYSICIAN: BAM HUYNH MD PROCEDURE: CXR1VW - CHEST 1VW Exam Type: CHEST 1VW Clinical Information: cp Comparison: None Findings: Ill-defined infiltrates of both lungs are seen consistent with bilateral pneumonia. The heart is large in size. The bony and soft tissue structures show no worrisome pathology. IMPRESSION: Findings consistent with pneumonia. Cardiomegaly. Follow-up is advised. DICTATED BY: MARIELA HARDIN MD DATE: 11/04/24 1458 ELECTRONICALLY SIGNED BY: MARIELA HARDIN MD DATE: 11/04/24 1500 MDM MDM: Differential diagnosis: Sepsis, UTI, pneumonia, Rationale: Tests considered and ordered secondary to shared decision making include: labs, ECG and radiology Previous outside records reviewed: Old ER visits. Risk of complication and/or morbidity or mortality of patient management: None Medications-Per medication reconciliation Need for hospitalization: Patient does meet criteria for hospitalization. Need for emergency major/minor surgery: No There are no social concerns with this patient. Prescription drug management Prescriptions will include symptomatic care Patient's prior external medical records from other ER visits were reviewed by me as indicated. Prior testing and results from previous visits were reviewed. Prior tests were taken into account with medical decision making and resource utilization, independent historian/historians were used to obtain complete medical history. I independently interpreted the test that were performed, results were reviewed by me and considered findings on radiology if ordered. Medical management and examination interpretation discussions were had by me with other qualified healthcare professionals as indicated for the patient's care. She will be admitted under the care of hospitalist group for ongoing management of sepsis with a pneumonia and UTI. ED Course Orders Procedure Category Date Status Time Iv Insertion CPOE 11/04/24 Transmitted 13:29 Pulse Ox(Continuous) RT 11/04/24 Transmitted 13:29 Vital Signs Per CPOE 11/04/24 Transmitted Routine 13:29 12 Lead Ekg Tracing- EKG 11/04/24 Complete Technical 13:29 Cbc With Differential LAB 11/04/24 In Process 13:29 Blood Cult RTUHIE 11/04/24 In Process 13:29 Urinalysis Profile LAB 11/04/24 Complete 13:29 Culture Urine RUTHIE 11/04/24 Logged 13:29 Lactic Acid LAB 11/04/24 Complete 13:29 Basic Metabolic Panel LAB 11/04/24 Complete 13:29 Prothrombin Time With LAB 11/04/24 Complete INR 13:35 Partial LAB 11/04/24 Complete Thromboplastin Time 13:35 0.9%Nacl 1000ml (Ns PHA 11/04/24 In Process 1000ml) 14:00 Procalcitonin LAB 11/04/24 Complete 13:35 Chest 1vw RAD 11/04/24 Resulted 14:02 Cardiac Panel LAB 11/04/24 Complete 13:29 Ceftriaxone 1g Vial PHA 11/04/24 Complete (Rocephine 1g Inj) 16:00 Admit Orders ADM 11/04/24 Transmitted 15:41 Acetaminophen 325 Tab PHA 11/04/24 In Process (Tylenol 325mg Tab 16:00 Ondansetron 4mg Inj PHA 11/04/24 In Process (Zofran 4mg Inj) 16:00 Hydralazine 20mg Inj PHA 11/04/24 In Process (Apresoline 20mg In 16:00 Famotidine 20mg Vial PHA 11/04/24 In Process (Pepcid 20mg Vial) 21:00 Zosyn 3.375gm+Ns 50ml PHA 11/04/24 In Process (Zosyn 3.375gm+Ns 16:00 0.9%Nacl 50ml (Ns PHA 11/04/24 In Process 50ml) 16:00 0.9%Nacl 1000ml (Ns PHA 11/04/24 In Process 1000ml) 16:00 Apply Scds CPOE 11/04/24 Transmitted 15:41 Initiate Po GEORGES 11/04/24 In Process Hypokalemia Protoc 15:41 Potassium Chloride PHA 11/04/24 In Process 20meq/100ml (Potassiu 16:00 Potassium Chl 10% PHA 11/04/24 In Process Elixir 20meq (Kcl 10% 16:00 Potassium Chloride PHA 11/04/24 In Process 20meq Er (K-Dur/Klor- 16:00 Notify Physician If CPOE 11/04/24 Transmitted There Is 15:41 Notify Md On The Next CPOE 11/04/24 Transmitted 15:41 Notify Md On The CPOE 11/04/24 Transmitted Next(Cont.) 15:41 Magnesium 2gm Premix PHA 11/04/24 In Process 50ml (Magnesium 2gm 16:00 Initiate GEORGES 11/04/24 In Process Hyperglycemia Protoco 15:41 Insulin Regular, PHA 11/04/24 In Process Human 3ml (Humulin R 16:30 Cbc With Differential LAB 11/05/24 Verified 04:00 Cbc With Differential LAB 11/06/24 Verified 04:00 Cbc With Differential LAB 11/07/24 Verified 04:00 Comprehensive LAB 11/05/24 Verified Metabolic Panel 04:00 Comprehensive LAB 11/06/24 Verified Metabolic Panel 04:00 Comprehensive LAB 11/07/24 Verified Metabolic Panel 04:00 Magnesium LAB 11/05/24 Verified 04:00 Magnesium LAB 11/06/24 Verified 04:00 Magnesium LAB 11/07/24 Verified 04:00 Group B Strep Pcr RUTHIE 11/04/24 Logged 15:51 Covid19 (Sars Antigen LAB 11/04/24 In Process Rapid) 15:51 Influenza Type A & B, LAB 11/04/24 In Process Rapid 15:51 Current Medications Medications (Trade) Dose Ordered Sig/Evelyn Route PRN Reason Start Time Stop Time Status Last Admin Dose Admin Acetaminophen (TYLenol 325MG TAB) 650 mg Q4H PRN PO TEMPERATURE GREATER THAN 101.5 11/04/24 16:00 12/04/24 15:59 Ceftriaxone Sodium (ROCEphine 1G INJ) 1 gm ONCE ONCE IVPB 11/04/24 16:00 11/04/24 16:01 DC 11/04/24 15:27 Famotidine (Pepcid 20mg Vial) 20 mg BID IV 11/04/24 21:00 12/04/24 20:59 Hydralazine HCl (APRESOLine 20MG INJ) 5 mg Q4H PRN IV ADMINISTER FOR SBP > 160 11/04/24 16:00 12/04/24 15:59 Insulin Human Regular (humuLIN R 100 UNIT/ML 3ML) INSULIN SLIDING SCAL... ACHS SQ 11/04/24 16:30 12/04/24 16:29 Magnesium Sulfate 50 ml @ 0 mls/hr PROTOCOL PRN IV low mag level 11/04/24 16:00 12/04/24 15:59 Ondansetron HCl (zoFRAN 4MG INJ) 4 mg Q6H PRN IVP NAUSEA/VOMITING 11/04/24 16:00 12/04/24 15:59 Piperacillin Sod/ Tazobactam Sod (Zosyn 3.375gm+NS 50ml) 3.375 gm Q8H IVPB 11/04/24 16:00 11/14/24 15:59 Potassium Chloride 100 ml @ 100 mls/hr AD PRN IV POTASSIUM PROTOCOL 11/04/24 16:00 12/04/24 15:59 Potassium Chloride (K-Dur/Klor-Con 20meq) 20 meq AD PRN PO POTASSIUM PROTOCOL 11/04/24 16:00 12/04/24 15:59 Potassium Chloride (KCl 10% Elixir 20meq/15ml) 20 meq AD PRN PO POTASSIUM PROTOCOL 11/04/24 16:00 12/04/24 15:59 Sodium Chloride 1,000 ml @ 75 mls/hr [id number] IV 11/04/24 16:00 12/04/24 15:59 Sodium Chloride 4,000 ml @ 1,333.333 mls/hr ONCE ONCE IV 11/04/24 14:00 11/04/24 16:59 11/04/24 14:26 Sodium Chloride (NS 50ml) 50 ml AD IV 11/04/24 16:00 12/04/24 15:59 Vital Signs Date Time Temp Pulse Resp B/P (MAP) Pulse Ox O2 Delivery O2 Flow Rate FiO2 11/04/24 14:40 99.7 114 22 142/86 98 Room Air* 0 21 11/04/24 13:25 102.2 120 18 115/76 91 0 Critical Care Note Comments Critical Care Procedure Note Authorized and Performed by: me Total critical care time: Approximately 36 minutes Due to a high probability of clinically significant, life threatening deterioration, the patient required my highest level of preparedness to intervene emergently and I personally spent this critical care time directly and personally managing the patient. This critical care time included obtaining a history; examining the patient; pulse oximetry; ordering and review of studies; arranging urgent treatment with development of a management plan; evaluation of patient's response to treatment; frequent reassessment; and, discussions with other providers. This critical care time was performed to assess and manage the high probability of imminent, life-threatening deterioration that could result in multi-organ failure. It was exclusive of separately billable procedures and treating other patients and teaching time. Please see MDM section and the rest of the note for further information on patient assessment and treatment. DX & DISP Disposition: Inpatient Decision to Admit Time: 16:04 Departure Impression: Primary Impression: Sepsis Additional Impressions: Pneumonia, UTI (urinary tract infection) Condition: Stable Referrals: ELLEN MEDINA (PCP) BAM HUYNH MD November 04, 2024 14:10
[2024-11-04] MEDS: [UNRECOGNIZED DRUG - OTHER] IV ONE (14:26)
--- NOTE | 2024-11-04 14:40 | NUR ---
PATIENT BEDDED AT THIS TIME
--- NOTE | 2024-11-04 14:50 | NUR ---
PATIENT FOUND LAYING ON THE FLOOR BY RADIOLOGY. PATIENT ASKED IF HE FELL, PATIENT VERBALIZES "I'M WEAK AND I WANTED TO LAY DOWN". PATIENT ASSESSED NO REDNESS OR ABNORMALITIES NOTED AT THIS TIME. PATIENT AAOX3, PATIENT ASSISTED BACK TO BED AND WAS PROVIDED WITH CALL LIGHT AT THIS TIME.
--- NOTE | 2024-11-04 15:00 | HMCIMG ---
Exam Type: CHEST 1VW Clinical Information: cp Comparison: None Findings: Ill-defined infiltrates of both lungs are seen consistent with bilateral pneumonia. The heart is large in size. The bony and soft tissue structures show no worrisome pathology. IMPRESSION: Findings consistent with pneumonia. Cardiomegaly. Follow-up is advised.
[2024-11-04 15:02] LABS: BASOPHILS # (AUTO) 0.02 K/uL (0.00-0.20); BASOPHILS % (AUTO) 0.3 % (0.0-5.0); HEMATOCRIT 48.5 % (42-54); IMMATURE GRANULOCYTE ABSOLUTE 0.04 K/uL (0-1); LYMPHOCYTES # (AUTO) 0.4 K/uL (1.0-4.8); LYMPHOCYTES % (AUTO) 5.6 % (21.0-51.0); MEAN CORPUSCULAR HEMOGLOBIN 28.4 pg (27.0-33.0); MEAN CORPUSCULAR VOLUME 83.6 fL (79-99); MONOCYTES # (AUTO) 0.6 K/uL (0.1-1.0); MONOCYTES % (AUTO) 8.7 % (3.0-13.0); NEUTROPHILS # (AUTO) 6.2 K/uL (1.8-7.7); NEUTROPHILS % (AUTO) 84.9 % (40.0-77.0); PLATELET COUNT (AUTO) 158 K/uL (130-400); RED CELL DISTRIBUTION WIDTH 12.7 % (11.0-15.5); WHITE BLOOD COUNT (AUTO) 7.3 K/uL (4.8-10.8)
[2024-11-04 15:06] LABS: APPEARANCE,URINE CLEAR (CLEAR); BILIRUBIN,URINE NEGATIVE (NEGATIVE); COLOR,URINE YELLOW (YELLOW); GLUCOSE, URINE (UA) >=1000 mg/dL (NEGATIVE); KETONES,URINE 5 mg/dL (NEGATIVE); LEUKOCYTE ESTERASE ,URINE 75 Leu/uL (NEGATIVE); NITRATE,URINE NEGATIVE (NEGATIVE); OCCULT BLOOD,URINE NEGATIVE (NEGATIVE); PH,URINE 5.5 (5.0-8.0); PROTEIN,URINE 20 mg/dL (NEGATIVE); UROBILINOGEN,URINE 0.2 mg/dL (0.2-1.0)
[2024-11-04 15:09] LABS: ADD UA MICROSCOPIC YES
[2024-11-04 15:12] LABS: BACTERIA,URINE RARE /HPF (None Seen); CREATININE 1.1 mg/dL (0.5-1.3); INR 1.07 (0.85-1.15); MUCUS,URINE RARE LPF (None Seen); POTASSIUM 3.2 mmol/L (3.5-5.1); PROTHROMBIN TIME 11.3 SEC (9.6-11.6); SQUAMOUS EPITHELIAL CELL,UR FEW /HPF (0-2); YEAST,URINE BUDDING RARE /HPF (None Seen)
[2024-11-04] MEDS: cefTRIAXone 1G VIAL IVPB ONE (15:27)
--- NOTE | 2024-11-04 15:30 | NUR ---
FELICIA ROBLES AT BEDSIDE
--- NOTE | 2024-11-04 15:50 | HP ---
[facility] HISTORY AND PHYSICAL Date of Service: November 04, 2024 Time of Service: 15:47 HISTORY OF PRESENT ILLNESS: [ ] Admission Date: 11/04/[address] Ra Rapp MD chief complaints: GBW This is a 59-year-old male presents in ED with chief complaints of general body witnessed. Patient reports not feeling well smptoms started five days ago. He started with a cough on Friday with fevers and chills patient reports taking Tylenol for fever and Tessalon Perles for cough. This morning he fell very weak with persistent productive cough and chills hes symptoms have progressed to worse and decided to come to ED for further evaluation and treatment. Patient reports receiving his influenza vaccine last year, has received COVID-19 vaccine x2 doses. Denies chest pain, palpitations, dizziness, GI symptoms. ER initiated sepsis alert sepsis workup; imaging x-ray chest consistent with bilateral pneumonia. Negative influenza a and B, and COVID19 Labs reviewed: Potassium 3.2 Glucose 193 lactic acid 3.4 calcium 8.3 Pro calcitonin 18.8 Urinalysis Leukocyte Esterase 75 Vital signs on arrival: Temperature 102.2 pulse 120 respirations 18/22, blood pressure 115/76 91 oxygen level Patient is seen in ED patient is lying in bed is fully awake alert oriented x3 with persistent productive cough noted dyspneic during my visit. Breath sound Rhonchi bilateral lower bases . We will bring wealth management consultant's, REVIEW OF SYSTEMS a 12 point ROS obtained all relevant positive documented otherwise ROS negative. PAST MEDICAL HISTORY: [ ] Diabetes hypertension hyperlipidemia PAST SURGICAL HISTORY: [ ] None PAST SOCIAL HISTORY: [ ] Denies smoking tobacco products and alcohol use Lives alone FAMILY HISTORY: [ ] Diabetes hypertension heart disease Coded Allergies: No Known Allergies (Unverified Allergy, Unknown, 04/25/19) PHYSICAL EXAM GENERAL APPEARANCE: The patient is awake, alert, and oriented, in no acute cardiopulmonary distress. NEUROLOGICAL: Cranial nerves II-XII grossly intact. Motor is 5/5 in bilateral upper and lower extremities proximal to distal. No sensory deficits. HEENT: Face is symmetric. Pupils are equal and reactive. Extraocular movements are intact. NECK: Supple. No JVD. No thyromegaly. No submental, submandibular, pre- /postauricular, occipital or supraclavicular lymphadenopathy. CHEST: Normal chest expansion. No Telemetry. Rhonchi to lower bases, LUNGS: Absence of any rales, rhonchi or any wheezing. CARDIOVASCULAR: Regular. S1 and S2 normal. No appreciable rubs, murmurs or gallops. ABDOMEN: Soft, nontender, and nondistended. There is no rebound, voluntary guarding, or rigidity. : Deferred. No Momin. EXTREMITIES: Non-edematous and not cyanotic. No clubbing. Good capillary refill. SKIN: No skin breakdown. Vital Sign (Last 24 Hours) 11/04/24 14:40 Temp 99.7 Pulse 114 Resp 22 B/P (MAP) 142/86 Pulse Ox 98 O2 Delivery Room Air* O2 Flow Rate 0 FiO2 21 LABS: Laboratory: Test 11/04/24 14:45 Range/Units White Blood Count 7.3 4.8-10.8 K/uL Red Blood Count 5.80 4.50-6.20 MIL/uL Hemoglobin 16.5 14.0-18.0 g/dL Hematocrit 48.5 42-54 % Mean Corpuscular Volume 83.6 79-99 fL Mean Corpuscular Hemoglobin 28.4 27.0-33.0 pg Mean Corpuscular Hemoglobin Concent 34.0 32.0-36.0 g/dL Red Cell Distribution Width 12.7 11.0-15.5 % Platelet Count 158 130-400 K/uL Mean Platelet Volume 8.9 7.5-10.5 fL Immature Granulocyte % (Auto) 0.5 0-1 % Neutrophils (%) (Auto) 84.9 H 40.0-77.0 % Lymphocytes (%) (Auto) 5.6 L 21.0-51.0 % Monocytes (%) (Auto) 8.7 3.0-13.0 % Eosinophils (%) (Auto) 0.0 0.0-8.0 % Basophils (%) (Auto) 0.3 0.0-5.0 % Neutrophils # (Auto) 6.2 1.8-7.7 K/uL Lymphocytes # (Auto) 0.4 L 1.0-4.8 K/uL Monocytes # (Auto) 0.6 0.1-1.0 K/uL Eosinophils # (Auto) 0.00 0.00-0.70 K/uL Basophils # (Auto) 0.02 0.00-0.20 K/uL Absolute Immature Granulocyte (auto 0.04 0-1 K/uL Nucleated Red Blood Cells 0.0 0.0-0.19 % Prothrombin Time 11.3 9.6-11.6 SEC Prothromb Time International Ratio 1.07 0.85-1.15 Activated Partial Thromboplast Time 31.0 26.3-35.5 SEC Urine Color YELLOW YELLOW Urine Appearance CLEAR CLEAR Urine pH 5.5 5.0-8.0 Urine Specific Frontier 1.029 1.001-1.031 Urine Protein 20 H NEGATIVE mg/dL Urine Glucose (UA) >=1000 H NEGATIVE mg/dL Urine Ketones 5 H NEGATIVE mg/dL Urine Occult Blood NEGATIVE NEGATIVE Urine Nitrate NEGATIVE NEGATIVE Urine Bilirubin NEGATIVE NEGATIVE mg/dL Urine Urobilinogen 0.2 0.2-1.0 mg/dL Urine Leukocyte Esterase 75 H NEGATIVE Jim/uL Urine RBC 2-5 H 0-1 /HPF Urine WBC 2-5 H 0-1 /HPF Urine Squamous Epithelial Cells FEW 0-2 /HPF Urine Bacteria RARE None Seen /HPF Urine Yeast RARE None Seen /HPF Sodium Level 136 136-145 mmol/L Potassium Level 3.2 L 3.5-5.1 mmol/L Chloride Level 98 L 101-111 mmol/L Carbon Dioxide Level 21 21-32 mmol/L Blood Urea Nitrogen 15 7-18 mg/dL Creatinine 1.1 0.5-1.3 mg/dL Glomerular Filtration Rate Calc 77 >90 mL/min Random Glucose 193 H 70-105 mg/dL Lactic Acid Level 3.4 H 0.8-2.5 mmol/L Total Calcium 8.3 L 8.5-10.1 mg/dL Total Creatine Kinase 110 # 21-232 U/L Troponin I High Sensitivity 18.4 4-75 ng/L Procalcitonin 18.89 H 0.05-0.5 ng/mL Current Medications Medications (Trade) Dose Ordered Sig/Evelyn Route PRN Reason Start Time Stop Time Status Last Admin Dose Admin Acetaminophen (TYLenol 325MG TAB) 650 mg Q4H PRN PO TEMPERATURE GREATER THAN 101.5 11/04/24 16:00 12/04/24 15:59 UNV Famotidine (Pepcid 20mg Vial) 20 mg BID IV 11/04/24 21:00 12/04/24 20:59 UNV Hydralazine HCl (APRESOLine 20MG INJ) 5 mg Q4H PRN IV ADMINISTER FOR SBP > 160 11/04/24 16:00 12/04/24 15:59 UNV Insulin Human Regular (humuLIN R 100 UNIT/ML 3ML) INSULIN SLIDING SCAL... ACHS SQ 11/04/24 16:30 12/04/24 16:29 UNV Magnesium Sulfate 50 ml @ 0 mls/hr PROTOCOL PRN IV low mag level 11/04/24 16:00 12/04/24 15:59 UNV Ondansetron HCl (zoFRAN 4MG INJ) 4 mg Q6H PRN IVP NAUSEA/VOMITING 11/04/24 16:00 12/04/24 15:59 UNV Piperacillin Sod/ Tazobactam Sod (Zosyn 3.375gm+NS 50ml) 3.375 gm Q8H IVPB 11/04/24 16:00 11/14/24 15:59 UNV Potassium Chloride 100 ml @ 100 mls/hr AD PRN IV POTASSIUM PROTOCOL 11/04/24 16:00 12/04/24 15:59 UNV Potassium Chloride (K-Dur/Klor-Con 20meq) 20 meq AD PRN PO POTASSIUM PROTOCOL 11/04/24 16:00 12/04/24 15:59 UNV Potassium Chloride (KCl 10% Elixir 20meq/15ml) 20 meq AD PRN PO POTASSIUM PROTOCOL 11/04/24 16:00 12/04/24 15:59 UNV Sodium Chloride 1,000 ml @ 75 mls/hr [id number] IV 11/04/24 16:00 12/04/24 15:59 UNV Sodium Chloride (NS 50ml) 50 ml AD IV 11/04/24 16:00 12/04/24 15:59 UNV DIAGNOSTICS / RADIOLOGY: [ ] REASON: cp ORDERING PHYSICIAN: BAM HUYNH MD PROCEDURE: CXR1VW - CHEST 1VW Exam Type: CHEST 1VW Clinical Information: cp Comparison: None Findings: Ill-defined infiltrates of both lungs are seen consistent with bilateral pneumonia. The heart is large in size. The bony and soft tissue structures show no worrisome pathology. IMPRESSION: Findings consistent with pneumonia. Cardiomegaly. Follow-up is advised. ASSESSMENT: acute resp failure with hypoxia POA Sepsis lactic acid 3.4 temperature 102 heart rate 120) POA Multifocal Pneumonia POA UTI POA cardiomegaly POA Morbid obesity BMI 64 POA electrolytes derangement: Hypo kalemia POA Diabetes with hyperglycemia POA Essential hypertension uncontrolled POA suspecting AUDREY POA PLAN: [ ] Admit: medical surgical floor condition: guarded Status: full code IVF: NS at 75 an hour Consultants wealth management consultant's Antibiotics: Azithromycin IV and Zosyn 3 375 gm IV every 8 hrs Test: Blood cultures urine cultures in process: ( influenza A/B , Covid 19 were negative ) will obtained CT chest Labs cbc, cmp, mag+ Oxygen supplemental as needed to keep O2 sats above 92% Bronchodilators duo neb/mucomyst q6 hrs with CPT, Solumedrol 40 mg IV Q 8hrs, cough medication as needed Respiratory gram stain cultures Replace electrolytes as needed as per protocol to keep potassium above 4.0 magnesium 2.0. Home medications pending to be reviewed by RN nurse. PRN: MEDICATIONS Tylenol 650 mg po every 4 hrs for fever zofran 4 mg IV every 6 hrs for n/v Hydralazine 5 mg IV every 4 hrs systolic pressure > 160 bowel regiment: lactulose 20 gm PO BID PRN constipation Pain management: Supportive measures: DVT ppx, GI ppx ( Heparin 5000 unit subq bid, famotidine 20 mg IV bid all questions answered time spent: > 35 min Supervising MD: Dr. Juhi Whittaker c/d This document was generated in part using voice recognition software, occasional wrong word or sound alike substitutions may have occurred due to the inherent limitations of voice recognition software. Read the chart carefully and recognize using context, where the substitutions have occurred. Although every effort was made to edit the content, end trimmer and typing errors may occur ADVANCED CARE PLANNING 1. Which of the following were discussed? Hospice Care - Yes / No Therapeutic options - Yes / No Advance Directives - Yes / No Other discussions - 2. Discussed with who? 3. Voluntary nature of this service was explained to the patient? Yes / No 4. Amount of time spent - 5. Reviewed by Physician? (if this service was performed by NPP) Yes / No ATTESTATION BY PHYSICIAN I have seen and examined the patient. I reviewed the documentation, medical decision making, and treatment plan as noted by the mid-level provider above. I agree with the findings and plan of care. Heavenly Reynaga MD, ELIZABETH NP November 04, 2024 15:50
[2024-11-04] MEDS ORDERED: ondanSETRON 4MG INJ IVP PRN (16:00)
[2024-11-04] MEDS ORDERED: 0.9%NACL 50ML IV SCH (16:00)
[2024-11-04] MEDS ORDERED: hydrALAZine 20MG/ML VIAL IV PRN (16:00)
[2024-11-04] MEDS: ZOSYN 3.375GM +NS 50ML IVPB SCH (16:22)
[2024-11-04] MEDS: 0.9%NACL 1000ML 1,000 ML IV SCH (16:22)
[2024-11-04] MEDS: INSULIN humuLIN R 100 UNIT/ML 3ML SQ SCH (16:23)
[2024-11-04 16:24] LABS: COVID19 (SARS ANTIGEN RAPID) PRESUMPTIVE NEGATIVE (NEGATIVE); INFLUENZA TYPE A Negative For Type A (NEGATIVE); INFLUENZA TYPE B Negative For Type B (NEGATIVE)
[2024-11-04] MEDS: AZITHROMYCIN 500MG+NS 250ML 250 ML IVPB SCH (16:51)
[2024-11-04] MEDS: HEParin 5,000 UNIT VIAL SQ SCH (17:38)
--- NOTE | 2024-11-04 19:45 | CONS ---
[facility] CONSULTATION NOTE Date Patient Seen: November 04, 2024 Time of Visit: 19:44 Supervising Physician: Dr. Neftali Beth Reason for Consultation: Pneumonia Consulting Physician: Hospitalist Outpatient Specialists: [ ] Inpatient Consults: [ ] PROBLEM LIST: Acute hypoxic respiratory failure, POA Multifocal pneumonia, POA Sepsis, POA Morbid obesity, POA AUDREY, POA PLAN: Admit per primary Upgrade patient to PCCU BiPAP at night DuoNeb q.6 Continue antibiotics Mucomyst b.i.d. Treat fever aggressively Monitor temperature curve Follow up COVID and flu test Keep head of bed above 30 Incentive spirometry Continue CPT Sputum for culture Aspiration precautions Follow up culture results Rest of plan care of primary HPI: 59-year-old male with past medical history of hypertension, DM type 2, morbid obesity, who presented to ED via private vehicle with complaint of shortness of breaths and generalized body weakness and found to have acute hypoxic respiratory failure, multifocal pneumonia, and severe sepsis. His symptoms associated with subjective fever, and with persistent cough. Patient then decided to come to ED for further medical evaluation. In ED chest x-ray was done and showed multifocal pneumonia, he was also found to have mild hypoxemia requiring O2 therapy. [facility] pulmonology was then consulted for evaluation of acute hypoxic respiratory failure and multifocal pneumonia. Patient was seen and examined in ED with no relatives present at bedside. Currently getting neb treatment, patient is mildly dyspneic with noticeable signs of respiratory distress. Able to follow commands and answer questions leonila ropriately. In ED patient was initiated on sepsis protocol and started on antibiotics by primary. At present patient is currently hemodynamically stable, with systolic blood pressure [id number] to 110, normal sinus rhythm on the monitor, with O2 saturatio n of 94% on nasal cannula. Patient denies any headache, chest pain, but complains of shortness of breath, cough, and generalized body weakness. PAST MEDICAL HX: see above PAST SURGICAL HX: noncontributory SOCIAL HISTORY: No tobacco, ETOH, or illicit drug use Coded Allergies: No Known Allergies (Unverified Allergy, Unknown, 04/25/19) REVIEW OF SYSTEMS: 12 point ROS reviewed with patient. Pertinent positives mentioned above. Otherwise negative. PHYSICAL EXAM: GENERAL: alert, weak, awake oriented x 3 HEENT: EOMI, Sclera non icteric, moist mucosa NECK: Morbidly obese LUNGS: Coarse bilateral lung sounds HEART: Regular rate and rhythm. Normal S1 and S2, without murmurs ABD: Large body habitus EXT: No clubbing cyanosis; 2+ pitting edema both lower extremities NEURO: Alert and oriented to person, follows commands Vital Signs (last 8hr) Date Time Temp Pulse Resp B/P (MAP) Pulse Ox O2 Delivery O2 Flow Rate FiO2 11/04/24 19:14 99.0 100 22 110/60 91 Room Air* 0 21 11/04/24 17:00 98.1 99 22 102/51 98 Room Air* 0 11/04/24 16:50 98.1 100 22 100/50 98 Room Air* 0 21 11/04/24 14:40 99.7 114 22 142/86 98 Room Air* 0 11/04/24 13:25 102.2 120 18 115/76 91 0 LABS: Hematology Labs: Test 11/04/24 14:45 Range/Units White Blood Count 7.3 4.8-10.8 K/uL Red Blood Count 5.80 4.50-6.20 MIL/uL Hemoglobin 16.5 14.0-18.0 g/dL Hematocrit 48.5 42-54 % Mean Corpuscular Volume 83.6 79-99 fL Mean Corpuscular Hemoglobin 28.4 27.0-33.0 pg Mean Corpuscular Hemoglobin Concent 34.0 32.0-36.0 g/dL Red Cell Distribution Width 12.7 11.0-15.5 % Platelet Count 158 130-400 K/uL Mean Platelet Volume 8.9 7.5-10.5 fL Immature Granulocyte % (Auto) 0.5 0-1 % Neutrophils (%) (Auto) 84.9 H 40.0-77.0 % Lymphocytes (%) (Auto) 5.6 L 21.0-51.0 % Monocytes (%) (Auto) 8.7 3.0-13.0 % Eosinophils (%) (Auto) 0.0 0.0-8.0 % Basophils (%) (Auto) 0.3 0.0-5.0 % Neutrophils # (Auto) 6.2 1.8-7.7 K/uL Lymphocytes # (Auto) 0.4 L 1.0-4.8 K/uL Monocytes # (Auto) 0.6 0.1-1.0 K/uL Eosinophils # (Auto) 0.00 0.00-0.70 K/uL Basophils # (Auto) 0.02 0.00-0.20 K/uL Absolute Immature Granulocyte (auto 0.04 0-1 K/uL Nucleated Red Blood Cells 0.0 0.0-0.19 % White Cell Morphology Comment See comments Chemistry Labs: Test 11/04/24 19:39 11/04/24 18:18 11/04/24 14:45 Range/Units Whole Blood Glucose 190 H 70-110 MG/DL Lactic Acid Level 3.2 H 0.8-2.5 mmol/L Sodium Level 136 136-145 mmol/L Potassium Level 3.2 L 3.5-5.1 mmol/L Chloride Level 98 L 101-111 mmol/L Carbon Dioxide Level 21 21-32 mmol/L Blood Urea Nitrogen 15 7-18 mg/dL Creatinine 1.1 0.5-1.3 mg/dL Glomerular Filtration Rate Calc 77 >90 mL/min Random Glucose 193 H 70-105 mg/dL Total Calcium 8.3 L 8.5-10.1 mg/dL Total Creatine Kinase 110 # 21-232 U/L Troponin I High Sensitivity 18.4 4-75 ng/L Procalcitonin 18.89 H 0.05-0.5 ng/mL Coagulation Labs: Test 11/04/24 14:45 Range/Units Prothrombin Time 11.3 9.6-11.6 SEC Prothromb Time International Ratio 1.07 0.85-1.15 Activated Partial Thromboplast Time 31.0 26.3-35.5 SEC DIAGNOSTICS / RADIOLOGY RESULTS: Exam Type: CHEST 1VW Clinical Information: cp Comparison: None Findings: Ill-defined infiltrates of both lungs are seen consistent with bilateral pneumonia. The heart is large in size. The bony and soft tissue structures show no worrisome pathology. IMPRESSION: Findings consistent with pneumonia. Cardiomegaly. Follow-up is advised. PLAN NEURO: Minimize central acting medications as possible. Maintain fall precautions, adequate lighting during the day PULMONARY: Supplemental 02 as needed. Maintain aspiration precautions at all times CARDIOVASCULAR: Follow hemodynamics. Vital signs per facility protocol GI & NUTRITION: Continue with nutritional support. Continue stool softeners and laxatives as needed. KIDNEYS & ELECTROLYTES: Strict monitoring of intake, output and overall fluid balance. Avoid nephrotoxic medications to the extent possible. Medications to be dosed according to renal function. Monitor electrolytes and replace as needed ENDOCRINE: Maintain blood glucose between 100-180 at all times. Hypoglycemia protocol in place INFECTIOUS DISEASE: Trend temperature, WBC and procalcitonin level Follow cultures, deescalate antibiotics as soon as possible. Panculture if new onset fever ONCOLOGY/HEMATOLOGY/COAGULATION: Monitor for s/s of bleeding Monitor hemoglobin, coagulation studies as needed SKIN: Pressure ulcer prevention per facility protocol Specialty mattress ORTHO/REHAB: Continue PT/OT Prophylaxis: Continue GI and DVT prophylaxis Code Status: Full Resuscitation Disposition: TBD Other: Total patient care time exceeds 35 minutes excluding all procedures. Supervising physician: CATIA Greene [employer] JOINT FINISHER November 04, 2024 19:45
[2024-11-04] MEDS: IpraTROPium/alBUTERol SULFATE 3 ML SOLUTION IH SCH (19:54)
[2024-11-04 19:55] VITALS: PULSE 93; RESP 24; O2SAT 95
[2024-11-04] MEDS: acetylCYSTeine 20% 200MG/ML 4ML VIAL IH SCH (19:55)
[2024-11-04] MEDS: SODIUM CHLORIDE 3% FOR INHALATION 4 ML/AMP VIAL.NEB IH ONE ×2 (20:25→23:43)
[2024-11-04] MEDS: Solu-medROL 40MG VIAL IVP SCH (20:44)
[2024-11-04] MEDS: monteLUKAST sodIUM 10 MG TAB PO SCH (20:44)
[2024-11-04] MEDS: PoTASSium chloRIDE 20MEQ ER 20 MEQ ERTAB PO PRN (20:44)
[2024-11-04] MEDS: FAMOTIDINE 20MG VIAL IV SCH (20:44)
[2024-11-04 22:20] VITALS: O2SAT 96
--- NOTE | 2024-11-04 22:20 | NUR ---
PT RECEIVED FROM ER VIA BED, ORIENTED TO ROOM AND CALL LIGHT. DENIES PAIN OR DISCOMFORT, SOB WITH EXERTION. REMINDED PT NOT TO GET OUT OF PER SELF AND TO CALL STAFF FOR ASSISTANCE, PT ACKNOWLEDGED INFORMATION. BED ALARM ON, CALL LIGHT WITHIN REACH.
[2024-11-04 22:27] VITALS: BP 139/78; PULSE 98; RESP 23; TEMP 99.7
[2024-11-04 23:21] VITALS: PULSE 84; RESP 20; O2SAT 94
[2024-11-04 23:54] VITALS: BP 100/52; PULSE 84; RESP 22; TEMP 98
[2024-11-05] VITALS (11 sets, daily range): BP systolic 112–137; BP diastolic 68–85; PULSE 66–86; RESP 20–22; TEMP 97–99.6; O2SAT 94–97
[2024-11-05] MEDS: acetaMINOPHEN 325 MG TAB PO PRN ×2 (00:20→08:52)
[2024-11-05] MEDS ORDERED: INSU3INS3 SQ (02:09)
[2024-11-05] MEDS ORDERED: ASPI-1197 PO (02:09)
[2024-11-05] MEDS ORDERED: SITA50TA PO (02:09)
[2024-11-05] MEDS ORDERED: ATOR-2 PO (02:09)
[2024-11-05] MEDS ORDERED: METF-446 PO (02:09)
[2024-11-05] MEDS ORDERED: DILT180C77 PO (02:09)
[2024-11-05] MEDS ORDERED: LISI2.5T13 PO (02:09)
[2024-11-05] MEDS ORDERED: EMPA25TA PO (02:09)
[2024-11-05] MEDS ORDERED: LEVO100C5 PO (02:09)
[2024-11-05 03:56] LABS: BASOPHILS # (AUTO) 0.04 K/uL (0.00-0.20); BASOPHILS % (AUTO) 0.3 % (0.0-5.0); EOSINOPHILS # (AUTO) 0.44 K/uL (0.00-0.70); EOSINOPHILS % (AUTO) 3.7 % (0.0-8.0); HEMATOCRIT 42.9 % (42-54); IMMATURE GRANULOCYTE ABSOLUTE 0.17 K/uL (0-1); LYMPHOCYTES # (AUTO) 0.5 K/uL (1.0-4.8); LYMPHOCYTES % (AUTO) 3.9 % (21.0-51.0); MEAN CORPUSCULAR HEMOGLOBIN 28.4 pg (27.0-33.0); MEAN CORPUSCULAR VOLUME 83.5 fL (79-99); MONOCYTES # (AUTO) 0.5 K/uL (0.1-1.0); MONOCYTES % (AUTO) 3.8 % (3.0-13.0); NEUTROPHILS # (AUTO) 10.3 K/uL (1.8-7.7); NEUTROPHILS % (AUTO) 86.9 % (40.0-77.0); PLATELET COUNT (AUTO) 129 K/uL (130-400); RED BLOOD CELL COUNT(AUTO) 5.14 MIL/uL (4.50-6.20); RED CELL DISTRIBUTION WIDTH 12.8 % (11.0-15.5); WHITE BLOOD COUNT (AUTO) 11.9 K/uL (4.8-10.8)
[2024-11-05 04:12] LABS: ALBUMIN 3.1 g/dL (3.5-5.0); BILIRUBIN,TOTAL 0.6 mg/dL (0.2-1.0); CREATININE 0.9 mg/dL (0.5-1.3); MAGNESIUM 1.6 mg/dL (1.80-2.40); TOTAL PROTEIN, SERUM 6.8 g/dL (6.0-8.3)
[2024-11-05] MEDS: PoTASSium chloRIDE 20MEQ/100ML 100 ML IV PRN (05:39)
[2024-11-05] MEDS: PoTASSium chl 10% ELIXIR 20MEQ 20 MEQ/15 ML UDCUP PO PRN (05:55)
[2024-11-05] MEDS: MAGNESIUM 2GM PREMIX 50ML 50 ML IV PRN (05:57)
[2024-11-05] MEDS: SODIUM CHLORIDE 3% FOR INHALATION 4 ML/AMP VIAL.NEB IH ONE (06:33)
--- NOTE | 2024-11-05 10:32 | NUR ---
DCP: HOME Pt difficult to understand at times, spoke to sister/DENNISA Ignacia Baers [phone]. Pt lives at home alone, is on SSI, attends [facility] daily, has provider 3-5 thru [facility] to assist him with ADLS, home management and meal prep. [facility] or sister transport as needed. Pt has a walker and shower chair at home. No HH or HD. PCP is Juan Pablo Knapp and uses [facility] for rx needs. Sister to transport home at de. Addendum: 11/05/24 at 1036 by TAMMY VILLANUEVA Amended: Links added.
--- NOTE | 2024-11-05 12:58 | PN ---
[facility] PROGRESS NOTE Date of Service: November 05, 2024 Time of Service: 12:50 SUBJECTIVE: 11/05 patient seen at bedside, no acute events overnight. Reports breathing has improved since admission, we will continue with antibiotics. Further recommendations per pulmonology. REVIEW OF SYSTEMS a 12 point ROS obtained all relevant positive documented otherwise ROS negative. PHYSICAL EXAM GENERAL APPEARANCE: The patient is awake, alert, and oriented, in no acute cardiopulmonary distress. NEUROLOGICAL: Cranial nerves II-XII grossly intact. Motor is 5/5 in bilateral upper and lower extremities proximal to distal. No sensory deficits. HEENT: Face is symmetric. Pupils are equal and reactive. Extraocular movements are intact. NECK: Supple. No JVD. No thyromegaly. No submental, submandibular, pre- /postauricular, occipital or supraclavicular lymphadenopathy. CHEST: Normal chest expansion. No Telemetry. Rhonchi to lower bases, LUNGS: Absence of any rales, rhonchi or any wheezing. CARDIOVASCULAR: Regular. S1 and S2 normal. No appreciable rubs, murmurs or gallops. ABDOMEN: Soft, nontender, and nondistended. There is no rebound, voluntary guarding, or rigidity. : Deferred. No Momin. EXTREMITIES: Non-edematous and not cyanotic. No clubbing. Good capillary refill. SKIN: No skin breakdown. Vital Signs (last 8hr) Date Time Temp Pulse Resp B/P (MAP) Pulse Ox O2 Delivery O2 Flow Rate FiO2 11/05/24 11:13 86 20 N/A Room Air 21 11/05/24 11:13 86 20 11/05/24 11:00 97.3 78 20 112/74 98 Room Air 11/05/24 08:40 96 Room Air* 0 21 11/05/24 07:00 97.5 83 22 137/73 97 Room Air 11/05/24 06:36 71 20 11/05/24 06:35 71 20 N/A Room Air 21 LABS: Laboratory: Test 11/05/24 11:37 11/05/24 10:39 11/05/24 07:13 11/05/24 03:42 Range/Units Group A Streptococcus Rapid negative NEGATIVE Whole Blood Glucose 264 #H 70-110 MG/DL Bedside Glucose Comment Notified Nurse Lactic Acid Level 2.0 0.8-2.5 mmol/L White Blood Count 11.9 #H 4.8-10.8 K/uL Red Blood Count 5.14 4.50-6.20 MIL/uL Hemoglobin 14.6 14.0-18.0 g/dL Hematocrit 42.9 42-54 % Mean Corpuscular Volume 83.5 79-99 fL Mean Corpuscular Hemoglobin 28.4 27.0-33.0 pg Mean Corpuscular Hemoglobin Concent 34.0 32.0-36.0 g/dL Red Cell Distribution Width 12.8 11.0-15.5 % Platelet Count 129 L 130-400 K/uL Mean Platelet Volume 9.0 7.5-10.5 fL Immature Granulocyte % (Auto) 1.4 H 0-1 % Neutrophils (%) (Auto) 86.9 H 40.0-77.0 % Lymphocytes (%) (Auto) 3.9 L 21.0-51.0 % Monocytes (%) (Auto) 3.8 3.0-13.0 % Eosinophils (%) (Auto) 3.7 0.0-8.0 % Basophils (%) (Auto) 0.3 0.0-5.0 % Neutrophils # (Auto) 10.3 H 1.8-7.7 K/uL Lymphocytes # (Auto) 0.5 L 1.0-4.8 K/uL Monocytes # (Auto) 0.5 0.1-1.0 K/uL Eosinophils # (Auto) 0.44 0.00-0.70 K/uL Basophils # (Auto) 0.04 0.00-0.20 K/uL Absolute Immature Granulocyte (auto 0.17 0-1 K/uL Nucleated Red Blood Cells 0.0 0.0-0.19 % Sodium Level 139 136-145 mmol/L Potassium Level 3.0 *L 3.5-5.1 mmol/L Chloride Level 103 101-111 mmol/L Carbon Dioxide Level 22 21-32 mmol/L Blood Urea Nitrogen 14 7-18 mg/dL Creatinine 0.9 0.5-1.3 mg/dL Glomerular Filtration Rate Calc 98 >90 mL/min Random Glucose 184 H 70-105 mg/dL Total Calcium 8.0 L 8.5-10.1 mg/dL Magnesium Level 1.60 L 1.80-2.40 mg/dL Total Bilirubin 0.6 0.2-1.0 mg/dL Aspartate Amino Transf (AST/SGOT) 26 10-37 U/L Alanine Aminotransferase (ALT/SGPT) 19 12-78 U/L Alkaline Phosphatase 54 50-136 U/L Total Protein 6.8 6.0-8.3 g/dL Albumin 3.1 L 3.5-5.0 g/dL Test 11/04/24 14:45 11/04/24 13:33 Range/Units White Cell Morphology Comment See comments Prothrombin Time 11.3 9.6-11.6 SEC Prothromb Time International Ratio 1.07 0.85-1.15 Activated Partial Thromboplast Time 31.0 26.3-35.5 SEC Urine Color YELLOW YELLOW Urine Appearance CLEAR CLEAR Urine pH 5.5 5.0-8.0 Urine Specific [place] 1.029 1.001-1.031 Urine Protein 20 H NEGATIVE mg/dL Urine Glucose (UA) >=1000 H NEGATIVE mg/dL Urine Ketones 5 H NEGATIVE mg/dL Urine Occult Blood NEGATIVE NEGATIVE Urine Nitrate NEGATIVE NEGATIVE Urine Bilirubin NEGATIVE NEGATIVE mg/dL Urine Urobilinogen 0.2 0.2-1.0 mg/dL Urine Leukocyte Esterase 75 H NEGATIVE Jim/uL Urine RBC 2-5 H 0-1 /HPF Urine WBC 2-5 H 0-1 /HPF Urine Squamous Epithelial Cells FEW 0-2 /HPF Urine Bacteria RARE None Seen /HPF Urine Yeast RARE None Seen /HPF Total Creatine Kinase 110 # 21-232 U/L Troponin I High Sensitivity 18.4 4-75 ng/L Procalcitonin 18.89 H 0.05-0.5 ng/mL Influenza Type A Antigen Negative For Type A NEGATIVE Influenza Type B Antigen Negative For Type B NEGATIVE SARS-CoV-2 Antigen (Rapid) PRESUMPTIVE NEGATIVE NEGATIVE Current Medications Medications (Trade) Dose Ordered Sig/Evelyn Route PRN Reason Start Time Stop Time Status Last Admin Dose Admin Acetaminophen (TYLenol 325MG TAB) 650 mg Q4H PRN PO TEMPERATURE GREATER THAN 101.5 11/04/24 16:00 12/04/24 15:59 11/05/24 00:20 650 MG Acetaminophen (TYLenol 325MG TAB) 650 mg Q6H PRN PO MILD PAIN (1-3) 11/05/24 09:00 12/05/24 08:59 11/05/24 08:52 650 MG Acetylcysteine (MUComyst 20% 4ML) 600mg = 3ml [id number] IH 11/04/24 18:00 12/04/24 17:59 11/05/24 11:13 800 MG Albuterol (DUOneb) 1 UDVIAL [id number] IH 11/04/24 18:00 12/04/24 17:59 11/05/24 11:12 1 UDVIAL Azithromycin 250 ml @ 250 mls/hr Q24H IVPB 11/04/24 16:30 11/05/24 06:52 DC 11/04/24 16:51 250 MLS/HR Famotidine (Pepcid 20mg Vial) 20 mg BID IV 11/04/24 21:00 12/04/24 20:59 11/05/24 08:32 20 MG Guaifenesin/ Dextromethorphan (RobiTUSSin DM 200/20MG 10ML) 10 ml Q4H PRN PO COUGH 11/04/24 17:00 12/04/24 16:59 Heparin Sodium (Porcine) (HEParin 5,000 UNIT VIAL) 5,000 unit Q12H SQ 11/04/24 17:30 12/04/24 17:29 11/05/24 05:56 5,000 UNIT Hydralazine HCl (APRESOLine 20MG INJ) 5 mg Q4H PRN IV ADMINISTER FOR SBP > 160 11/04/24 16:00 12/04/24 15:59 Insulin Human Regular (humuLIN R 100 UNIT/ML 3ML) INSULIN SLIDING SCAL... ACHS SQ 11/04/24 16:30 12/04/24 16:29 11/05/24 12:02 10 UNIT Magnesium Sulfate 50 ml @ 0 mls/hr PROTOCOL PRN IV low mag level 11/04/24 16:00 12/04/24 15:59 11/05/24 05:57 25 MLS/HR Methylprednisolone Sodium Succinate (Solu-medROL 40MG) 40 mg BID IVP 11/04/24 21:00 12/04/24 20:59 11/05/24 08:38 40 MG Montelukast Sodium (SinguLAIR) 10 mg HS PO 11/04/24 21:00 12/04/24 20:59 11/04/24 20:44 10 MG Ondansetron HCl (zoFRAN 4MG INJ) 4 mg Q6H PRN IVP NAUSEA/VOMITING 11/04/24 16:00 12/04/24 15:59 Piperacillin Sod/ Tazobactam Sod (Zosyn 3.375gm+NS 50ml) 3.375 gm Q8H IVPB 11/04/24 16:00 11/14/24 15:59 11/05/24 08:32 3.375 GM Potassium Chloride 100 ml @ 100 mls/hr AD PRN IV POTASSIUM PROTOCOL 11/04/24 16:00 12/04/24 15:59 11/05/24 05:39 100 MLS/HR Potassium Chloride (K-Dur/Klor-Con 20meq) 20 meq AD PRN PO POTASSIUM PROTOCOL 11/04/24 16:00 12/04/24 15:59 11/04/24 20:45 20 MEQ Potassium Chloride (KCl 10% Elixir 20meq/15ml) 20 meq AD PRN PO POTASSIUM PROTOCOL 11/04/24 16:00 12/04/24 15:59 11/05/24 11:59 20 MEQ Sodium Chloride 1,000 ml @ 75 mls/hr [id number] IV 11/04/24 16:00 11/04/24 23:19 DC 11/04/24 16:22 75 MLS/HR Sodium Chloride (NS 50ml) 50 ml AD IV 11/04/24 16:00 11/05/24 07:45 DC DIAGNOSTICS / RADIOLOGY: [ ] ASSESSMENT: acute resp failure with hypoxia POA Sepsis lactic acid 3.4 temperature 102 heart rate 120) POA Multifocal Pneumonia POA UTI POA cardiomegaly POA Morbid obesity BMI 64 POA electrolytes derangement: Hypo kalemia POA Diabetes with hyperglycemia POA Essential hypertension uncontrolled POA suspecting AUDREY POA PLAN: Continue supportive oxygen Discontinue nebulizer and systemic steroids this patient has no history of asthma or COPD this is not indicated Continue IV Zosyn, discontinue azithromycin Continue sliding scale Continue hypoglycemia protocol Repeat potassium as needed Pulmonology consulted, appreciate recommendations Disposition: Pending improvement in clinical status LAURA AGUILAR MD November 05, 2024 12:58
[2024-11-05] MEDS: CEFTRIAXONE 2GM VIAL IVPB SCH (17:31)
--- NOTE | 2024-11-05 18:00 | NUR ---
MUCOM[facility]ST TREATMENT NO GIVEN DUE TO BRONCHODILATOR DISCONTINUED Addendum: 11/05/24 at 2152 by SHERRI SMITH RT RT Amended: Links added.
--- NOTE | 2024-11-05 18:28 | NUR ---
PERIPHERAL IV PATIENT'S PERIPHERAL IV STARTED LEAKING. ANTIBIOTIC DELAYED TO BE GIVEN ONCE NEW PERIPHERAL IV IS OBTAINED. THIS RN ATTEMPTED X 2, BUT NOT SUCCESSFUL; BOTH PERIPHERAL IV SITES DID NOT TOLERATE NS IV FLUSH. CHARGE NURSE NOTIFIED AND ATTEMPTED, BUT NOT SUCCESSFUL. ICU, RN TO COME ATTEMPT.
--- NOTE | 2024-11-05 19:23 | CONS ---
[facility] CONSULTATION NOTE Date Patient Seen: November 05, 2024 Time of Visit: 19:15 Supervising Physician: SHAVON EDMONDS MD Reason for Consultation: RESPIRATORY DISTRESS AND HYPOXIA Consulting Physician: Hospitalist PROBLEM LIST: - Acute hypoxemic respiratory failure on admission - Bilateral multifocal pneumonia, community acquired present on admission - Acute sepsis without septic shock on admission secondary to pneumonia - Super-super obesity, BMI 60 - Suspected, untreated, undiagnosed Obstructive Sleep Apnea - Acute cystitis on admission - Type 2 diabetes mellitus with hyperglycemia, uncontrolled - Essential hypertension HPI: The patient is seen and evaluated Clinical chart reviewed, events of the last 24 hours noted He remains on 2 L/min nasal canula Less cough, less dyspnea Patient gets tired easily and has marked shortness of breath with exertion No fevers in the last 24 hours No nausea or vomiting Appetite is good PAST MEDICAL HX: see above PAST SURGICAL HX: noncontributory SOCIAL HISTORY: No tobacco, ETOH, or illicit drug use Coded Allergies: No Known Allergies (Unverified Allergy, Unknown, 04/25/19) REVIEW OF SYSTEMS: 12 point ROS reviewed with patient. Pertinent positives mentioned above. Otherwise negative. PHYSICAL EXAM: GENERAL: alert, weak, awake oriented x 3 HEENT: EOMI, Sclera non icteric, moist mucosa NECK: Morbidly obese LUNGS: Decreased air entry at the bases bilaterally, no wheezing HEART: Regular rate and rhythm. Normal S1 and S2, without murmurs ABD: Large body habitus EXT: No clubbing cyanosis; 2+ pitting edema both lower extremities NEURO: Alert and oriented to person, follows commands Vital Signs (last 8hr) Date Time Temp Pulse Resp B/P (MAP) Pulse Ox O2 Delivery O2 Flow Rate FiO2 11/05/24 16:00 98.1 83 20 125/85 97 Room Air LABS: Hematology Labs: Test 11/05/24 03:42 11/04/24 14:45 Range/Units White Blood Count 11.9 #H 4.8-10.8 K/uL Red Blood Count 5.14 4.50-6.20 MIL/uL Hemoglobin 14.6 14.0-18.0 g/dL Hematocrit 42.9 42-54 % Mean Corpuscular Volume 83.5 79-99 fL Mean Corpuscular Hemoglobin 28.4 27.0-33.0 pg Mean Corpuscular Hemoglobin Concent 34.0 32.0-36.0 g/dL Red Cell Distribution Width 12.8 11.0-15.5 % Platelet Count 129 L 130-400 K/uL Mean Platelet Volume 9.0 7.5-10.5 fL Immature Granulocyte % (Auto) 1.4 H 0-1 % Neutrophils (%) (Auto) 86.9 H 40.0-77.0 % Lymphocytes (%) (Auto) 3.9 L 21.0-51.0 % Monocytes (%) (Auto) 3.8 3.0-13.0 % Eosinophils (%) (Auto) 3.7 0.0-8.0 % Basophils (%) (Auto) 0.3 0.0-5.0 % Neutrophils # (Auto) 10.3 H 1.8-7.7 K/uL Lymphocytes # (Auto) 0.5 L 1.0-4.8 K/uL Monocytes # (Auto) 0.5 0.1-1.0 K/uL Eosinophils # (Auto) 0.44 0.00-0.70 K/uL Basophils # (Auto) 0.04 0.00-0.20 K/uL Absolute Immature Granulocyte (auto 0.17 0-1 K/uL Nucleated Red Blood Cells 0.0 0.0-0.19 % White Cell Morphology Comment See comments Chemistry Labs: Test 11/05/24 16:31 11/05/24 07:13 11/05/24 03:42 11/04/24 14:45 Range/Units Whole Blood Glucose 237 H 70-110 MG/DL Bedside Glucose Comment Notified Nurse Lactic Acid Level 2.0 0.8-2.5 mmol/L Sodium Level 139 136-145 mmol/L Potassium Level 3.0 *L 3.5-5.1 mmol/L Chloride Level 103 101-111 mmol/L Carbon Dioxide Level 22 21-32 mmol/L Blood Urea Nitrogen 14 7-18 mg/dL Creatinine 0.9 0.5-1.3 mg/dL Glomerular Filtration Rate Calc 98 >90 mL/min Random Glucose 184 H 70-105 mg/dL Total Calcium 8.0 L 8.5-10.1 mg/dL Magnesium Level 1.60 L 1.80-2.40 mg/dL Total Bilirubin 0.6 0.2-1.0 mg/dL Aspartate Amino Transf (AST/SGOT) 26 10-37 U/L Alanine Aminotransferase (ALT/SGPT) 19 12-78 U/L Alkaline Phosphatase 54 50-136 U/L Total Protein 6.8 6.0-8.3 g/dL Albumin 3.1 L 3.5-5.0 g/dL Total Creatine Kinase 110 # 21-232 U/L Troponin I High Sensitivity 18.4 4-75 ng/L Procalcitonin 18.89 H 0.05-0.5 ng/mL Coagulation Labs: Test 11/04/24 14:45 Range/Units Prothrombin Time 11.3 9.6-11.6 SEC Prothromb Time International Ratio 1.07 0.85-1.15 Activated Partial Thromboplast Time 31.0 26.3-35.5 SEC DIAGNOSTICS / RADIOLOGY RESULTS: [ Chest x-ray reviewed, bilateral infiltrates, low lung volumes, no effusions. ] PLAN Stop Zosyn Start Rocephin 2gm IV daily Start Zithromax 500 mg IV daily Monitor O2 saturation on exertion Incentive spirometry Follow management for AUDREY continue use of BiPAP at night will arrange outpatient follow up with Neftali Beth MD at the pulmonary clinic NEURO: Minimize central acting medications as possible. Maintain fall precautions, adequate lighting during the day PULMONARY: Supplemental 02 as needed. Maintain aspiration precautions at all times CARDIOVASCULAR: Follow hemodynamics. Vital signs per facility protocol GI & NUTRITION: Continue with nutritional support. Continue stool softeners and laxatives as needed. KIDNEYS & ELECTROLYTES: Strict monitoring of intake, output and overall fluid balance. Avoid nephrotoxic medications to the extent possible. Medications to be dosed according to renal function. Monitor electrolytes and replace as needed ENDOCRINE: Maintain blood glucose between 100-180 at all times. Hypoglycemia protocol in place INFECTIOUS DISEASE: Trend temperature, WBC and procalcitonin level Follow cultures, deescalate antibiotics as soon as possible. Panculture if new onset fever ONCOLOGY/HEMATOLOGY/COAGULATION: Monitor for s/s of bleeding Monitor hemoglobin, coagulation studies as needed SKIN: Pressure ulcer prevention per facility protocol Specialty mattress ORTHO/REHAB: Continue PT/OT Prophylaxis: Continue GI and DVT prophylaxis Code Status: Full Resuscitation Disposition: TBD Other: Total patient care time exceeds 35 minutes excluding all procedures. I personally scribed for SHAVON EDMONDS MD ([email or web address]) on 11/05/24 at 19:23. Electronically submitted by Ziggy Jeff ([email or web address]). SHAVON EDMONDS MD November 05, 2024 19:23
[2024-11-05] MEDS: AZITHROMYCIN 500MG+NS 250ML 250 ML IVPB SCH (21:07)
[2024-11-06] VITALS (14 sets, daily range): BP systolic 113–143; BP diastolic 67–92; PULSE 69–89; RESP 20–21; TEMP 97–98.1; O2SAT 93–97
[2024-11-06 05:16] LABS: BASOPHILS # (AUTO) 0.01 K/uL (0.00-0.20); BASOPHILS % (AUTO) 0.1 % (0.0-5.0); EOSINOPHILS # (AUTO) 0.01 K/uL (0.00-0.70); EOSINOPHILS % (AUTO) 0.1 % (0.0-8.0); HEMATOCRIT 41.6 % (42-54); IMMATURE GRANULOCYTE ABSOLUTE 0.07 K/uL (0-1); LYMPHOCYTES % (AUTO) 8.8 % (21.0-51.0); MEAN CORPUSCULAR HEMOGLOBIN 28.6 pg (27.0-33.0); MEAN CORPUSCULAR HGB CONC 34.6 g/dL (32.0-36.0); MEAN CORPUSCULAR VOLUME 82.5 fL (79-99); MONOCYTES # (AUTO) 0.7 K/uL (0.1-1.0); MONOCYTES % (AUTO) 5.7 % (3.0-13.0); NEUTROPHILS # (AUTO) 9.9 K/uL (1.8-7.7); NEUTROPHILS % (AUTO) 84.7 % (40.0-77.0); PLATELET COUNT (AUTO) 135 K/uL (130-400); RED BLOOD CELL COUNT(AUTO) 5.04 MIL/uL (4.50-6.20); RED CELL DISTRIBUTION WIDTH 13.2 % (11.0-15.5); WHITE BLOOD COUNT (AUTO) 11.7 K/uL (4.8-10.8)
[2024-11-06 05:35] LABS: ALBUMIN 2.9 g/dL (3.5-5.0); BILIRUBIN,TOTAL 0.4 mg/dL (0.2-1.0); CREATININE 0.8 mg/dL (0.5-1.3); MAGNESIUM 2.2 mg/dL (1.80-2.40)
--- NOTE | 2024-11-06 06:02 | NUR ---
mucomyst was no administered due to bronchodilator was discontinued Addendum: 11/06/24 at 0604 by SHERRI SMITH RT RT Amended: Links added.
[2024-11-06] MEDS: INSULIN GLARgine 100 UNITS/ML 10 ML VIAL SQ SCH (06:38)
--- NOTE | 2024-11-06 08:12 | NUR ---
FALL RISK/BED ALARM/NONCOMPLIANCE PATIENT'S BED ALARM WENT OFF. PATIENT OUT OF ROOM WALKING IN HALLWAY WANTING TO GO HOME BECAUSE HE STATES DOES NOT GET ENOUGH FOOD HERE AND HE CAN NOT SLEEP. HE STATES HE CAN'T JUST SIT IN ROOM. PATIENT IS ON A CONSISTENT CARB DIET, BUT IS NOT COMPLIANT. PATIENT WAS REFUSING BLOOD SUGAR CHECKS THIS FUEL RETROFITTING TECHNICIAN. DR. AGUILAR HAD SPOKEN TO HIM AND EDUCATED HIM ON NEED FOR ADEQUATE BLOOD SUGAR CONTROL. EDUCATED PATIENT ON NEED TO CALL BEFORE GETTING OUT OF BED AND FALL PRECAUTIONS, BUT PATIENT DECLINED. PATIENT STATES HE IS UNABLE TO HOLD\\RETAIN INFORMATION. PATIENT STATES HE HAS MENTAL DELAY, "MENTAL RETARDATION". CALLED SHONDA, PATIENT'S SISTER, AND DPOA, INFORMED OF PATIENT SITUATION. SHONDA CONFIRMED STATING HE DOES HAVE "MENTAL RETARDATION." SHONDA TALKED TO PATIENT ON THE PHONE AND PATIENT NOW MORE COMPLIANT AND WILLING TO STAY IN HOSPITAL FOR FURTHER CARE. DR. AGUILAR ALSO INFORMED OF PATIENT'S DESIRE TO LEAVE.
--- NOTE | 2024-11-06 10:43 | PN ---
[facility] PROGRESS NOTE Date of Service: November 06, 2024 Time of Service: 10:41 SUBJECTIVE: 11/05 patient seen at bedside, no acute events overnight. Reports breathing has improved since admission, we will continue with antibiotics. Further recommendations per pulmonology. 11/06 patient seen at bedside, no acute events overnight. He has been weaned to room air, afebrile hemodynamically stable. WBC stable at 11.7, similar to yesterday. We will continue current care and follow up with pulmonology recommendations. We will discharge once cleared by pulmonology, appreciate discharge medication recommendations. REVIEW OF SYSTEMS a 12 point ROS obtained all relevant positive documented otherwise ROS negative. PHYSICAL EXAM GENERAL APPEARANCE: The patient is awake, alert, and oriented, in no acute cardiopulmonary distress. NEUROLOGICAL: Cranial nerves II-XII grossly intact. Motor is 5/5 in bilateral upper and lower extremities proximal to distal. No sensory deficits. HEENT: Face is symmetric. Pupils are equal and reactive. Extraocular movements are intact. NECK: Supple. No JVD. No thyromegaly. No submental, submandibular, pre- /postauricular, occipital or supraclavicular lymphadenopathy. CHEST: Normal chest expansion. No Telemetry. Rhonchi to lower bases, LUNGS: Absence of any rales, rhonchi or any wheezing. CARDIOVASCULAR: Regular. S1 and S2 normal. No appreciable rubs, murmurs or gallops. ABDOMEN: Soft, nontender, and nondistended. There is no rebound, voluntary guarding, or rigidity. : Deferred. No Momin. EXTREMITIES: Non-edematous and not cyanotic. No clubbing. Good capillary refill. SKIN: No skin breakdown. Vital Signs (last 8hr) Date Time Temp Pulse Resp B/P (MAP) Pulse Ox O2 Delivery O2 Flow Rate FiO2 11/06/24 08:40 97 Room Air* 0 21 11/06/24 07:00 97.0 77 20 117/81 96 Room Air 11/06/24 06:40 89 20 N/A Room Air 21 11/06/24 04:01 98.1 70 20 129/70 95 LABS: Laboratory: Test 11/06/24 07:40 11/06/24 05:01 11/05/24 11:37 11/05/24 07:13 Range/Units Whole Blood Glucose 159 H 70-110 MG/DL Bedside Glucose Comment Notified Nurse White Blood Count 11.7 H 4.8-10.8 K/uL Red Blood Count 5.04 4.50-6.20 MIL/uL Hemoglobin 14.4 14.0-18.0 g/dL Hematocrit 41.6 L 42-54 % Mean Corpuscular Volume 82.5 79-99 fL Mean Corpuscular Hemoglobin 28.6 27.0-33.0 pg Mean Corpuscular Hemoglobin Concent 34.6 32.0-36.0 g/dL Red Cell Distribution Width 13.2 11.0-15.5 % Platelet Count 135 130-400 K/uL Mean Platelet Volume 9.6 7.5-10.5 fL Immature Granulocyte % (Auto) 0.6 0-1 % Neutrophils (%) (Auto) 84.7 H 40.0-77.0 % Lymphocytes (%) (Auto) 8.8 L 21.0-51.0 % Monocytes (%) (Auto) 5.7 3.0-13.0 % Eosinophils (%) (Auto) 0.1 0.0-8.0 % Basophils (%) (Auto) 0.1 0.0-5.0 % Neutrophils # (Auto) 9.9 H 1.8-7.7 K/uL Lymphocytes # (Auto) 1.0 1.0-4.8 K/uL Monocytes # (Auto) 0.7 0.1-1.0 K/uL Eosinophils # (Auto) 0.01 0.00-0.70 K/uL Basophils # (Auto) 0.01 0.00-0.20 K/uL Absolute Immature Granulocyte (auto 0.07 0-1 K/uL Nucleated Red Blood Cells 0.0 0.0-0.19 % Sodium Level 138 136-145 mmol/L Potassium Level 4.0 3.5-5.1 mmol/L Chloride Level 103 101-111 mmol/L Carbon Dioxide Level 24 21-32 mmol/L Blood Urea Nitrogen 16 7-18 mg/dL Creatinine 0.8 0.5-1.3 mg/dL Glomerular Filtration Rate Calc 102 >90 mL/min Random Glucose 172 H 70-105 mg/dL Total Calcium 8.5 8.5-10.1 mg/dL Magnesium Level 2.20 1.80-2.40 mg/dL Total Bilirubin 0.4 0.2-1.0 mg/dL Aspartate Amino Transf (AST/SGOT) 29 10-37 U/L Alanine Aminotransferase (ALT/SGPT) 23 12-78 U/L Alkaline Phosphatase 57 50-136 U/L Total Protein 7.0 6.0-8.3 g/dL Albumin 2.9 L 3.5-5.0 g/dL Group A Streptococcus Rapid negative NEGATIVE Lactic Acid Level 2.0 0.8-2.5 mmol/L Test 11/04/24 14:45 11/04/24 13:33 Range/Units White Cell Morphology Comment See comments Prothrombin Time 11.3 9.6-11.6 SEC Prothromb Time International Ratio 1.07 0.85-1.15 Activated Partial Thromboplast Time 31.0 26.3-35.5 SEC Urine Color YELLOW YELLOW Urine Appearance CLEAR CLEAR Urine pH 5.5 5.0-8.0 Urine Specific [place] 1.029 1.001-1.031 Urine Protein 20 H NEGATIVE mg/dL Urine Glucose (UA) >=1000 H NEGATIVE mg/dL Urine Ketones 5 H NEGATIVE mg/dL Urine Occult Blood NEGATIVE NEGATIVE Urine Nitrate NEGATIVE NEGATIVE Urine Bilirubin NEGATIVE NEGATIVE mg/dL Urine Urobilinogen 0.2 0.2-1.0 mg/dL Urine Leukocyte Esterase 75 H NEGATIVE Jim/uL Urine RBC 2-5 H 0-1 /HPF Urine WBC 2-5 H 0-1 /HPF Urine Squamous Epithelial Cells FEW 0-2 /HPF Urine Bacteria RARE None Seen /HPF Urine Yeast RARE None Seen /HPF Total Creatine Kinase 110 # 21-232 U/L Troponin I High Sensitivity 18.4 4-75 ng/L Procalcitonin 18.89 H 0.05-0.5 ng/mL Influenza Type A Antigen Negative For Type A NEGATIVE Influenza Type B Antigen Negative For Type B NEGATIVE SARS-CoV-2 Antigen (Rapid) PRESUMPTIVE NEGATIVE NEGATIVE Current Medications Medications (Trade) Dose Ordered Sig/Evelyn Route PRN Reason Start Time Stop Time Status Last Admin Dose Admin Acetaminophen (TYLenol 325MG TAB) 650 mg Q4H PRN PO TEMPERATURE GREATER THAN 101.5 11/04/24 16:00 12/04/24 15:59 11/05/24 00:20 650 MG Acetaminophen (TYLenol 325MG TAB) 650 mg Q6H PRN PO MILD PAIN (1-3) 11/05/24 09:00 12/05/24 08:59 11/05/24 21:08 650 MG Acetylcysteine (MUComyst 20% 4ML) 600mg = 3ml [id number] IH 11/04/24 18:00 12/04/24 17:59 11/05/24 11:13 800 MG Albuterol (DUOneb) 1 UDVIAL [id number] IH 11/04/24 18:00 11/05/24 12:57 DC 11/05/24 11:12 1 UDVIAL Azithromycin 250 ml @ 250 mls/hr Q24H IVPB 11/04/24 16:30 11/05/24 06:52 DC 11/04/24 16:51 250 MLS/HR Azithromycin 250 ml @ 250 mls/hr Q24H IVPB 11/05/24 18:00 11/15/24 17:59 11/05/24 21:07 250 MLS/HR Ceftriaxone Sodium (Rocephin 2gm Inj) 2 gm Q24H IVPB 11/05/24 16:30 11/15/24 16:29 11/05/24 17:31 2 GM Famotidine (Pepcid 20mg Vial) 20 mg BID IV 11/04/24 21:00 12/04/24 20:59 11/06/24 08:34 20 MG Guaifenesin/ Dextromethorphan (RobiTUSSin DM 200/20MG 10ML) 10 ml Q4H PRN PO COUGH 11/04/24 17:00 12/04/24 16:59 Heparin Sodium (Porcine) (HEParin 5,000 UNIT VIAL) 5,000 unit Q12H SQ 11/04/24 17:30 12/04/24 17:29 11/05/24 17:45 5,000 UNIT Hydralazine HCl (APRESOLine 20MG INJ) 5 mg Q4H PRN IV ADMINISTER FOR SBP > 160 11/04/24 16:00 12/04/24 15:59 Insulin Glargine (LANtus 100 UNITS/ML 10 ML VIAL) 15 units BID@0730,2100 SQ 11/06/24 07:30 12/06/24 07:29 Insulin Human Regular (humuLIN R 100 UNIT/ML 3ML) INSULIN SLIDING SCAL... ACHS SQ 11/04/24 16:30 12/04/24 16:29 11/05/24 20:21 12 UNIT Magnesium Sulfate 50 ml @ 0 mls/hr PROTOCOL PRN IV low mag level 11/04/24 16:00 12/04/24 15:59 11/05/24 05:57 25 MLS/HR Methylprednisolone Sodium Succinate (Solu-medROL 40MG) 40 mg BID IVP 11/04/24 21:00 11/05/24 12:57 DC 11/05/24 08:38 40 MG Montelukast Sodium (SinguLAIR) 10 mg HS PO 11/04/24 21:00 11/05/24 12:57 DC 11/04/24 20:44 10 MG Ondansetron HCl (zoFRAN 4MG INJ) 4 mg Q6H PRN IVP NAUSEA/VOMITING 11/04/24 16:00 12/04/24 15:59 Piperacillin Sod/ Tazobactam Sod (Zosyn 3.375gm+NS 50ml) 3.375 gm Q8H IVPB 11/04/24 16:00 11/05/24 16:28 DC 11/05/24 08:32 3.375 GM Potassium Chloride 100 ml @ 100 mls/hr AD PRN IV POTASSIUM PROTOCOL 11/04/24 16:00 12/04/24 15:59 11/05/24 05:39 100 MLS/HR Potassium Chloride (K-Dur/Klor-Con 20meq) 20 meq AD PRN PO POTASSIUM PROTOCOL 11/04/24 16:00 12/04/24 15:59 11/04/24 20:45 20 MEQ Potassium Chloride (KCl 10% Elixir 20meq/15ml) 20 meq AD PRN PO POTASSIUM PROTOCOL 11/04/24 16:00 12/04/24 15:59 11/05/24 14:44 20 MEQ Sodium Chloride 1,000 ml @ 75 mls/hr [id number] IV 11/04/24 16:00 11/04/24 23:19 DC 11/04/24 16:22 75 MLS/HR Sodium Chloride (NS 50ml) 50 ml AD IV 11/04/24 16:00 11/05/24 07:45 DC DIAGNOSTICS / RADIOLOGY: [ ] ASSESSMENT: acute resp failure with hypoxia POA Sepsis lactic acid 3.4 temperature 102 heart rate 120) POA Multifocal Pneumonia POA UTI POA cardiomegaly POA Morbid obesity BMI 64 POA electrolytes derangement: Hypo kalemia POA Diabetes with hyperglycemia POA Essential hypertension uncontrolled POA suspecting AUDREY POA PLAN: Continue supportive oxygen Discontinue nebulizer and systemic steroids this patient has no history of asthma or COPD this is not indicated Discontinue Zosyn, start ceftriaxone, azithromycin per pulmonology Continue sliding scale Continue hypoglycemia protocol Repeat potassium as needed Pulmonology consulted, appreciate recommendations Disposition: Pending discharge recommendations per pulmonology LAURA AGUILAR MD November 06, 2024 10:43
--- NOTE | 2024-11-06 11:45 | NUR ---
BED ALARM/FALL RISK/NONCOMPLIANCE PATIENT'S ALARM WENT OFF. PATIENT FOUND AMBULATING UP IN ROOM AND WALKED OUT IN HALLWAY STATING HE COULDN'T JUST SIT IN ROOM. THAT HE WANTED TO GO HOME. FELICIA ALEX HERE ROUNDING. PATIENT AMBULATING IN HALLWAY TOWARDS ELEVATOR AND UNSTEADY WITH GAIT; SWAYING FROM ONE SIDE TO ANOTHER. ASSISTED PATIENT WITH WHEELCHAIR PATIENT STUMBLED WHILE AMBULATING. PATIENT TRANSFERRED BACK INTO ROOM. FELICIA ALEX SPOKE TO PATIENT CONCERNING PLAN OF CARE AND ADDRESSED THE RISKS OF LEAVING AGAINST MEDICAL ADVICE. FELICIA ALEX ALSO SPOKE TO THE PATIENT'S SISTER, SHONDA, CONCERNING CURRENT SITUATION AND CONDITION OF PATIENT. PATIENT SPOKE TO HIS SISTER AND IS WILLING ONCE MORE TO STAY IN HOSPITAL FOR MEDICAL TREATMENT. PATIENT MOVED CLOSER TO NURSES STATION AND CHAIR ALARM APPLIED TO RECLINER. REEDUCATED PATIENT ON FALL PREVENTION.
[2024-11-06 12:15] LABS: HEMOGLOBIN A1C 10.7 % (4.0-6.0)
--- NOTE | 2024-11-06 17:31 | PN ---
[facility] PROGRESS NOTE Date Patient Seen: November 06, 2024 Time of Visit: 17:29 Supervising Physician: Dr. Nava Consulting Physician: Hospitalist PROBLEM LIST: - Acute hypoxemic respiratory failure on admission - Bilateral multifocal pneumonia, community acquired present on admission - Acute sepsis without septic shock on admission secondary to pneumonia - Super-super obesity, BMI 60 - Suspected, untreated, undiagnosed Obstructive Sleep Apnea - Acute cystitis on admission - Type 2 diabetes mellitus with hyperglycemia, uncontrolled - Essential hypertension INTERVAL HISTORY: 11/06/2024: At the time of my evaluation, the patient was sitting up to the bedside chair. The staff nurse reports patient has been attempting to exit as he wants to leave against medical advice. The patient remains on room air and with optimal oxygen saturation. He is otherwise hemodynamically stable. Laboratory data today was notable for slightly increased WBC 11.7. No profound anemia or thrombocytopenia. Chemistry panel today was unremarkable. Microbiology data showing blood cultures no growth and urine culture showing mixed skin kanu contamination. No new chest x-ray for today. No other complaint. REVIEW OF SYSTEMS: 12 point ROS reviewed with patient. Pertinent positives mentioned above. Otherwise negative. PHYSICAL EXAM: GENERAL: Alert, weak, awake oriented x 3 HEENT: EOMI, Sclera non icteric, moist mucosa NECK: Morbidly obese LUNGS: Decreased air entry at the bases bilaterally, no wheezing HEART: Regular rate and rhythm. Normal S1 and S2, without murmurs ABD: Large body habitus EXT: No clubbing cyanosis; 2+ pitting edema both lower extremities NEURO: Alert and oriented to person, follows commands Vital Signs (last 8hr) Date Time Temp Pulse Resp B/P (MAP) Pulse Ox O2 Delivery O2 Flow Rate FiO2 11/06/24 16:00 97.5 75 20 139/89 95 Room Air 11/06/24 10:30 97.5 77 20 113/73 95 Room Air LABS: Hematology Labs: Test 11/06/24 05:01 Range/Units White Blood Count 11.7 H 4.8-10.8 K/uL Red Blood Count 5.04 4.50-6.20 MIL/uL Hemoglobin 14.4 14.0-18.0 g/dL Hematocrit 41.6 L 42-54 % Mean Corpuscular Volume 82.5 79-99 fL Mean Corpuscular Hemoglobin 28.6 27.0-33.0 pg Mean Corpuscular Hemoglobin Concent 34.6 32.0-36.0 g/dL Red Cell Distribution Width 13.2 11.0-15.5 % Platelet Count 135 130-400 K/uL Mean Platelet Volume 9.6 7.5-10.5 fL Immature Granulocyte % (Auto) 0.6 0-1 % Neutrophils (%) (Auto) 84.7 H 40.0-77.0 % Lymphocytes (%) (Auto) 8.8 L 21.0-51.0 % Monocytes (%) (Auto) 5.7 3.0-13.0 % Eosinophils (%) (Auto) 0.1 0.0-8.0 % Basophils (%) (Auto) 0.1 0.0-5.0 % Neutrophils # (Auto) 9.9 H 1.8-7.7 K/uL Lymphocytes # (Auto) 1.0 1.0-4.8 K/uL Monocytes # (Auto) 0.7 0.1-1.0 K/uL Eosinophils # (Auto) 0.01 0.00-0.70 K/uL Basophils # (Auto) 0.01 0.00-0.20 K/uL Absolute Immature Granulocyte (auto 0.07 0-1 K/uL Nucleated Red Blood Cells 0.0 0.0-0.19 % Chemistry Labs: Test 11/06/24 16:30 11/06/24 05:01 11/05/24 07:13 Range/Units Whole Blood Glucose 217 H 70-110 MG/DL Bedside Glucose Comment Notified Nurse Sodium Level 138 136-145 mmol/L Potassium Level 4.0 3.5-5.1 mmol/L Chloride Level 103 101-111 mmol/L Carbon Dioxide Level 24 21-32 mmol/L Blood Urea Nitrogen 16 7-18 mg/dL Creatinine 0.8 0.5-1.3 mg/dL Glomerular Filtration Rate Calc 102 >90 mL/min Random Glucose 172 H 70-105 mg/dL Hemoglobin A1c 10.7 H 4.0-6.0 % Estimated Average Glucose (eAG) 260 H 70-126 mg/dL Total Calcium 8.5 8.5-10.1 mg/dL Magnesium Level 2.20 1.80-2.40 mg/dL Total Bilirubin 0.4 0.2-1.0 mg/dL Aspartate Amino Transf (AST/SGOT) 29 10-37 U/L Alanine Aminotransferase (ALT/SGPT) 23 12-78 U/L Alkaline Phosphatase 57 50-136 U/L Total Protein 7.0 6.0-8.3 g/dL Albumin 2.9 L 3.5-5.0 g/dL Lactic Acid Level 2.0 0.8-2.5 mmol/L DIAGNOSTICS / RADIOLOGY RESULTS: [ ] PLAN Stop Zosyn Start Rocephin 2gm IV daily Start Zithromax 500 mg IV daily Monitor O2 saturation on exertion Incentive spirometry Follow management for AUDREY continue use of BiPAP at night will arrange outpatient follow up with Neftali Beth MD at the pulmonary clinic 11/06/2024: For now, we are going to continue current management for the patient. I did redirect the patient and also spoke to his sister regarding his attempt to exit behaviors. She does report the patient is MR and is very active reason why he is behaving this way. For now, we are going to continue antibiotic therapy with Rocephin and Zithromax. We will monitor the patient's progress and response to management. We will continue to provide general supportive care, GI and DVT prophylaxis. Further orders per attending MD and hospital course. NEURO: Minimize central acting medications as possible. Maintain fall precautions, adequate lighting during the day PULMONARY: Supplemental 02 as needed. Maintain aspiration precautions at all times CARDIOVASCULAR: Follow hemodynamics. Vital signs per facility protocol GI & NUTRITION: Continue with nutritional support. Continue stool softeners and laxatives as needed. KIDNEYS & ELECTROLYTES: Strict monitoring of intake, output and overall fluid balance. Avoid nephrotoxic medications to the extent possible. Medications to be dosed according to renal function. Monitor electrolytes and replace as needed ENDOCRINE: Maintain blood glucose between 100-180 at all times. Hypoglycemia protocol in place INFECTIOUS DISEASE: Trend temperature, WBC and procalcitonin level Follow cultures, deescalate antibiotics as soon as possible. Panculture if new onset fever ONCOLOGY/HEMATOLOGY/COAGULATION: Monitor for s/s of bleeding Monitor hemoglobin, coagulation studies as needed SKIN: Pressure ulcer prevention per facility protocol Specialty mattress ORTHO/REHAB: Continue PT/OT Prophylaxis: Continue GI and DVT prophylaxis Code Status: Full Resuscitation Disposition: TBD Other: Patient was seen and case discussed with hamilton PLATT. Plan of care was discussed and agreed upon. NISH ALEX NP November 06, 2024 17:31
[2024-11-06] MEDS: guaiFENesin-DM 200/20MG 10ML PO PRN (17:37)
[2024-11-06] MEDS: Solu-medROL 125MG VIAL IVP ONE (17:38)
[2024-11-06] MEDS: IpraTROPium/alBUTERol SULFATE 3 ML SOLUTION IH SCH (18:31)
[2024-11-07] VITALS (8 sets, daily range): BP systolic 111–144; BP diastolic 81–94; PULSE 65–122; RESP 18–26; TEMP 97.1–98.2; O2SAT 94–98
[2024-11-07 04:00] LABS: BASOPHILS # (AUTO) 0.01 K/uL (0.00-0.20); BASOPHILS % (AUTO) 0.1 % (0.0-5.0); HEMATOCRIT 42.1 % (42-54); IMMATURE GRANULOCYTE ABSOLUTE 0.13 K/uL (0-1); LYMPHOCYTES # (AUTO) 0.7 K/uL (1.0-4.8); LYMPHOCYTES % (AUTO) 9.3 % (21.0-51.0); MEAN CORPUSCULAR HEMOGLOBIN 28.6 pg (27.0-33.0); MEAN CORPUSCULAR VOLUME 84.2 fL (79-99); MONOCYTES # (AUTO) 0.1 K/uL (0.1-1.0); NEUTROPHILS # (AUTO) 6.2 K/uL (1.8-7.7); NEUTROPHILS % (AUTO) 86.8 % (40.0-77.0); PLATELET COUNT (AUTO) 161 K/uL (130-400); RED CELL DISTRIBUTION WIDTH 13.2 % (11.0-15.5); WHITE BLOOD COUNT (AUTO) 7.2 K/uL (4.8-10.8)
[2024-11-07 04:14] LABS: BILIRUBIN,TOTAL 0.2 mg/dL (0.2-1.0); CREATININE 0.9 mg/dL (0.5-1.3); MAGNESIUM 2.1 mg/dL (1.80-2.40); POTASSIUM 4.3 mmol/L (3.5-5.1); TOTAL PROTEIN, SERUM 7.3 g/dL (6.0-8.3)
[2024-11-07] MEDS: Solu-medROL 40MG VIAL IVP SCH (08:01)
--- NOTE | 2024-11-07 08:10 | HMCIMG ---
PORTABLE CHEST RADIOGRAPH INDICATION: Assess infiltrates COMPARISON: 11/04/2024 FINDINGS/IMPRESSION: conveyor monitor leads overlie the field of view. Stable heart size without pulmonary vascular congestion. Unchanged left lung airspace disease, without pneumothorax.
--- NOTE | 2024-11-07 09:42 | NUR ---
PATIENT CONDITION PATIENT'S BED ALARM TRIGGERED. PATIENT GOT UP AND STARTED COUGHING UP AND WENT TO RESTROOM; PULLED OFF HIS TELEMETRY WIRES. PATIENT WITH SHORTNESS OF BREATHE AND AUDIBLE WHEEZES THROUGHOUT. PATIENT GOT OUT OF RESTROOM AND STARTED STATING HE WANTED TO GO HOME BECAUSE HIS AUNT WAS COMING TO HIS HOUSE. EDUCATED PATIENT ON FALL PRECAUTIONS. HOWEVER, PATIENT REFUSED EDUCATION. PATIENT ALSO REFUSED FOR METAL MOLD DRESSER TO BE CONNECTED. EXPLAINED TO PATIENT THAT DOCTOR HAD YET TO DISCHARGED HIM AND THAT IT WAS RECOMMENDED FOR HIM TO CONTINUE TO RECEIVE MEDICAL TREATMENT SO HE COULD SAFELY GO HOME. PATIENT FRUSTRATED AND STARTED TALKING FAST STATING THIS NURSE DID NOT WANT HIM HERE ANYMORE, DIDN'T WANT ANYTHING MORE AND PROCEEDED TO RAISE HIS ARMS AND DID A MOTION OF CHOKING TOWARDS THIS NURSE. PATIENT STATED IN [place], "LEAVE ME ALONE AND LET ME GO HOME!". SHONDA, PATIENT'S SISTER\\DPOA CALLED AND NOTIFIED OF PATIENT'S CONDITION AND PATIENT'S BEHAVIOR TOWARDS NURSING STAFF. PATIENT LEFT WITH CHAIR ALARM ON; NO TELEMETRY ON, DUE TO PATIENT BEHAVIOR AND REFUSAL. DR. AGUILAR NOTIFIED OF PATIENT'S STATUS/CONDITION. PATIENT NOW SITTING IN CHAIR, NO AUDIBLE WHEEZE HEARD, NO MORE COUGH, NO MORE SHORTNESS OF BREATHE ON REST.
--- NOTE | 2024-11-07 10:05 | PN ---
[facility] PROGRESS NOTE Date Patient Seen: November 07, 2024 Time of Visit: 11:04 Supervising Physician: [ ] Consulting Physician: Hospitalist PROBLEM LIST: - Acute hypoxemic respiratory failure on admission - Bilateral multifocal pneumonia, community acquired present on admission - Acute sepsis without septic shock on admission secondary to pneumonia - Super-super obesity, BMI 60 - Suspected, untreated, undiagnosed Obstructive Sleep Apnea - Acute cystitis on admission - Type 2 diabetes mellitus with hyperglycemia, uncontrolled - Essential hypertension INTERVAL HISTORY: 11/06/2024: At the time of my evaluation, the patient was sitting up to the bedside chair. The staff nurse reports patient has been attempting to exit as he wants to leave against medical advice. The patient remains on room air and with optimal oxygen saturation. He is otherwise hemodynamically stable. Laboratory data today was notable for slightly increased WBC 11.7. No profound anemia or thrombocytopenia. Chemistry panel today was unremarkable. Microbiology data showing blood cultures no growth and urine culture showing mixed skin kanu contamination. No new chest x-ray for today. No other complaint. REVIEW OF SYSTEMS: 12 point ROS reviewed with patient. Pertinent positives mentioned above. Otherwise negative. PHYSICAL EXAM: GENERAL: Alert, weak, awake oriented x 3 HEENT: EOMI, Sclera non icteric, moist mucosa NECK: Morbidly obese LUNGS: Decreased air entry at the bases bilaterally, no wheezing HEART: Regular rate and rhythm. Normal S1 and S2, without murmurs ABD: Large body habitus EXT: No clubbing cyanosis; 2+ pitting edema both lower extremities NEURO: Alert and oriented to person, follows commands Vital Signs (last 8hr) Date Time Temp Pulse Resp B/P (MAP) Pulse Ox O2 Delivery O2 Flow Rate FiO2 11/07/24 08:10 95 Room Air* 0 21 11/07/24 07:00 97.5 73 20 111/81 96 Room Air 11/07/24 06:19 65 20 11/07/24 06:18 65 20 N/A Room Air 21 11/07/24 04:00 98.2 68 20 144/84 96 Room Air LABS: Hematology Labs: Test 11/07/24 03:39 Range/Units White Blood Count 7.2 # 4.8-10.8 K/uL Red Blood Count 5.00 4.50-6.20 MIL/uL Hemoglobin 14.3 14.0-18.0 g/dL Hematocrit 42.1 42-54 % Mean Corpuscular Volume 84.2 79-99 fL Mean Corpuscular Hemoglobin 28.6 27.0-33.0 pg Mean Corpuscular Hemoglobin Concent 34.0 32.0-36.0 g/dL Red Cell Distribution Width 13.2 11.0-15.5 % Platelet Count 161 130-400 K/uL Mean Platelet Volume 10.0 7.5-10.5 fL Immature Granulocyte % (Auto) 1.8 H 0-1 % Neutrophils (%) (Auto) 86.8 H 40.0-77.0 % Lymphocytes (%) (Auto) 9.3 L 21.0-51.0 % Monocytes (%) (Auto) 2.0 L 3.0-13.0 % Eosinophils (%) (Auto) 0.0 0.0-8.0 % Basophils (%) (Auto) 0.1 0.0-5.0 % Neutrophils # (Auto) 6.2 1.8-7.7 K/uL Lymphocytes # (Auto) 0.7 L 1.0-4.8 K/uL Monocytes # (Auto) 0.1 0.1-1.0 K/uL Eosinophils # (Auto) 0.00 0.00-0.70 K/uL Basophils # (Auto) 0.01 0.00-0.20 K/uL Absolute Immature Granulocyte (auto 0.13 0-1 K/uL Nucleated Red Blood Cells 0.0 0.0-0.19 % Chemistry Labs: Test 11/07/24 03:39 11/06/24 16:30 11/06/24 05:01 Range/Units Sodium Level 137 136-145 mmol/L Potassium Level 4.3 3.5-5.1 mmol/L Chloride Level 102 101-111 mmol/L Carbon Dioxide Level 26 21-32 mmol/L Blood Urea Nitrogen 18 7-18 mg/dL Creatinine 0.9 0.5-1.3 mg/dL Glomerular Filtration Rate Calc 98 >90 mL/min Random Glucose 340 #H 70-105 mg/dL Total Calcium 8.6 8.5-10.1 mg/dL Magnesium Level 2.10 1.80-2.40 mg/dL Total Bilirubin 0.2 # 0.2-1.0 mg/dL Aspartate Amino Transf (AST/SGOT) 30 10-37 U/L Alanine Aminotransferase (ALT/SGPT) 30 # 12-78 U/L Alkaline Phosphatase 64 50-136 U/L Total Protein 7.3 6.0-8.3 g/dL Albumin 3.0 L 3.5-5.0 g/dL Whole Blood Glucose 217 H 70-110 MG/DL Bedside Glucose Comment Notified Nurse Hemoglobin A1c 10.7 H 4.0-6.0 % Estimated Average Glucose (eAG) 260 H 70-126 mg/dL DIAGNOSTICS / RADIOLOGY RESULTS: [ ] PLAN Stop Zosyn Start Rocephin 2gm IV daily Start Zithromax 500 mg IV daily Monitor O2 saturation on exertion Incentive spirometry Follow management for AUDREY continue use of BiPAP at night will arrange outpatient follow up with Neftali Beth MD at the pulmonary clinic 11/06/2024: For now, we are going to continue current management for the patient. I did redirect the patient and also spoke to his sister regarding his attempt to exit behaviors. She does report the patient is MR and is very active reason why he is behaving this way. For now, we are going to continue antibiotic therapy with Rocephin and Zithromax. We will monitor the patient's progress and response to management. We will continue to provide general supportive care, GI and DVT prophylaxis. Further orders per attending MD and hospital course. NEURO: Minimize central acting medications as possible. Maintain fall precautions, adequate lighting during the day PULMONARY: Supplemental 02 as needed. Maintain aspiration precautions at all times CARDIOVASCULAR: Follow hemodynamics. Vital signs per facility protocol GI & NUTRITION: Continue with nutritional support. Continue stool softeners and laxatives as needed. KIDNEYS & ELECTROLYTES: Strict monitoring of intake, output and overall fluid balance. Avoid nephrotoxic medications to the extent possible. Medications to be dosed according to renal function. Monitor electrolytes and replace as needed ENDOCRINE: Maintain blood glucose between 100-180 at all times. Hypoglycemia protocol in place INFECTIOUS DISEASE: Trend temperature, WBC and procalcitonin level Follow cultures, deescalate antibiotics as soon as possible. Panculture if new onset fever ONCOLOGY/HEMATOLOGY/COAGULATION: Monitor for s/s of bleeding Monitor hemoglobin, coagulation studies as needed SKIN: Pressure ulcer prevention per facility protocol Specialty mattress ORTHO/REHAB: Continue PT/OT Prophylaxis: Continue GI and DVT prophylaxis Code Status: Full Resuscitation Disposition: TBD Other: Patient was seen and case discussed with hamilton PLATT. Plan of care was discussed and agreed upon. DANNY WASHINGTON November 07, 2024 10:05
--- NOTE | 2024-11-07 10:41 | PN ---
[facility] PROGRESS NOTE Date Patient Seen: November 07, 2024 Time of Visit: 11:28 Supervising Physician: [Dr. Nava] Consulting Physician: Hospitalist PROBLEM LIST: - Acute hypoxemic respiratory failure on admission, resolved - Bilateral multifocal pneumonia, community acquired present on admission, treated - Acute sepsis without septic shock on admission secondary to pneumonia, resolved - Super-super obesity, BMI 60 - Suspected, untreated, undiagnosed Obstructive Sleep Apnea - Acute cystitis on admission - Type 2 diabetes mellitus with hyperglycemia, uncontrolled - Essential hypertension Non-compliant with CPAP INTERVAL HISTORY: 11/06/2024: At the time of my evaluation, the patient was sitting up to the bedside chair. The staff nurse reports patient has been attempting to exit as he wants to leave against medical advice. The patient remains on room air and with optimal oxygen saturation. He is otherwise hemodynamically stable. Laboratory data today was notable for slightly increased WBC 11.7. No profound anemia or thrombocytopenia. Chemistry panel today was unremarkable. Microbiology data showing blood cultures no growth and urine culture showing mixed skin kanu contamination. No new chest x-ray for today. No other complaint. 11/07 Patient is evaluated at bedside. His respiratory status is improved, satu rating well on room air without wheezing per auscultation while at rest. Per nursing staff states patient does have SOB and wheezing with exertion. He did have respiratory consult for check an O2 while on exertion. CXR from this morning shows worsening infiltrates but patient is clinically improved. Continues with incentive spirometry with good readings at bedside. No fever ov ernight. He denies any cough or congestion. If he passes 6min walk, he is cleared from pulmonary standpoint to continue antibiotics upon discharge. Recommend albuterol inhaler for symptomatic exertion and outpatient pulmonary follow up for PFT and sleep study. REVIEW OF SYSTEMS: 12 point ROS reviewed with patient. Pertinent positives mentioned above. Othe rwise negative. PHYSICAL EXAM: GENERAL: Alert, weak, awake oriented x 3 HEENT: EOMI, Sclera non icteric, moist mucosa NECK: Morbidly obese LUNGS: Decreased air entry at the bases bilaterally, no wheezing HEART: Regular rate and rhythm. Normal S1 and S2, without murmurs ABD: Large body habitus EXT: No clubbing cyanosis; 2+ pitting edema both lower extremities NEURO: Alert and oriented to person, follows commands Vital Signs (last 8hr) Date Time Temp Pulse Resp B/P (MAP) Pulse Ox O2 Delivery O2 Flow Rate FiO2 11/07/24 08:10 95 Room Air* 0 21 11/07/24 07:00 97.5 73 20 111/81 96 Room Air 11/07/24 06:19 65 20 11/07/24 06:18 65 20 N/A Room Air 21 11/07/24 04:00 98.2 68 20 144/84 96 Room Air LABS: Hematology Labs: Test 11/07/24 03:39 Range/Units White Blood Count 7.2 # 4.8-10.8 K/uL Red Blood Count 5.00 4.50-6.20 MIL/uL Hemoglobin 14.3 14.0-18.0 g/dL Hematocrit 42.1 42-54 % Mean Corpuscular Volume 84.2 79-99 fL Mean Corpuscular Hemoglobin 28.6 27.0-33.0 pg Mean Corpuscular Hemoglobin Concent 34.0 32.0-36.0 g/dL Red Cell Distribution Width 13.2 11.0-15.5 % Platelet Count 161 130-400 K/uL Mean Platelet Volume 10.0 7.5-10.5 fL Immature Granulocyte % (Auto) 1.8 H 0-1 % Neutrophils (%) (Auto) 86.8 H 40.0-77.0 % Lymphocytes (%) (Auto) 9.3 L 21.0-51.0 % Monocytes (%) (Auto) 2.0 L 3.0-13.0 % Eosinophils (%) (Auto) 0.0 0.0-8.0 % Basophils (%) (Auto) 0.1 0.0-5.0 % Neutrophils # (Auto) 6.2 1.8-7.7 K/uL Lymphocytes # (Auto) 0.7 L 1.0-4.8 K/uL Monocytes # (Auto) 0.1 0.1-1.0 K/uL Eosinophils # (Auto) 0.00 0.00-0.70 K/uL Basophils # (Auto) 0.01 0.00-0.20 K/uL Absolute Immature Granulocyte (auto 0.13 0-1 K/uL Nucleated Red Blood Cells 0.0 0.0-0.19 % Chemistry Labs: Test 11/07/24 03:39 11/06/24 16:30 11/06/24 05:01 Range/Units Sodium Level 137 136-145 mmol/L Potassium Level 4.3 3.5-5.1 mmol/L Chloride Level 102 101-111 mmol/L Carbon Dioxide Level 26 21-32 mmol/L Blood Urea Nitrogen 18 7-18 mg/dL Creatinine 0.9 0.5-1.3 mg/dL Glomerular Filtration Rate Calc 98 >90 mL/min Random Glucose 340 #H 70-105 mg/dL Total Calcium 8.6 8.5-10.1 mg/dL Magnesium Level 2.10 1.80-2.40 mg/dL Total Bilirubin 0.2 # 0.2-1.0 mg/dL Aspartate Amino Transf (AST/SGOT) 30 10-37 U/L Alanine Aminotransferase (ALT/SGPT) 30 # 12-78 U/L Alkaline Phosphatase 64 50-136 U/L Total Protein 7.3 6.0-8.3 g/dL Albumin 3.0 L 3.5-5.0 g/dL Whole Blood Glucose 217 H 70-110 MG/DL Bedside Glucose Comment Notified Nurse Hemoglobin A1c 10.7 H 4.0-6.0 % Estimated Average Glucose (eAG) 260 H 70-126 mg/dL DIAGNOSTICS / RADIOLOGY RESULTS: [ ] PLAN Continue zpack upon discharge Albuterol inhaler Monitor O2 saturation on exertion Incentive spirometry Follow management for AUDREY continue use of BiPAP at night 6 min walk prior to DC d/t SOB and wheezing with exertion will arrange outpatient follow up with Neftali Beth MD at the pulmonary clinic NEURO: Minimize central acting medications as possible. Maintain fall precautions, adequate lighting during the day PULMONARY: Supplemental 02 as needed. Maintain aspiration precautions at all times CARDIOVASCULAR: Follow hemodynamics. Vital signs per facility protocol GI & NUTRITION: Continue with nutritional support. Continue stool softeners and laxatives as needed. KIDNEYS & ELECTROLYTES: Strict monitoring of intake, output and overall fluid balance. Avoid nephrotoxic medications to the extent possible. Medications to be dosed according to renal function. Monitor electrolytes and replace as needed ENDOCRINE: Maintain blood glucose between 100-180 at all times. Hypoglycemia protocol in place INFECTIOUS DISEASE: Trend temperature, WBC and procalcitonin level Follow cultures, deescalate antibiotics as soon as possible. Panculture if new onset fever ONCOLOGY/HEMATOLOGY/COAGULATION: Monitor for s/s of bleeding Monitor hemoglobin, coagulation studies as needed SKIN: Pressure ulcer prevention per facility protocol Specialty mattress ORTHO/REHAB: Continue PT/OT Prophylaxis: Continue GI and DVT prophylaxis Code Status: Full Resuscitation Disposition: TBD Other: Patient was seen and case discussed with rounding . Plan of care was discussed and agreed upon. DANNY WASHINGTON November 07, 2024 10:41
[2024-11-07] MEDS ORDERED: ALBU18HF7 IH (10:57)
[2024-11-07] MEDS ORDERED: AZIT500T4 PO (10:57)
[2024-11-07] MEDS ORDERED: PRED20TA3 PO (10:57)
--- NOTE | 2024-11-07 11:35 | NUR ---
REFUSAL OF MED PATIENT IS PENDING TO BE DISCHARGED HOME; STATES DOES NOT WANT INSULIN RIGHT NOW, BECAUSE HE IS GOING HOME AND HE IS TO GO EAT LUNCH AT HOME.
--- NOTE | 2024-11-07 11:50 | NUR ---
DISCHARGE DISCHARGE INSTRUCTIONS GIVEN TO PATIENT'S NIECE. UNDERSTANDING AND KNOWLEDGE VERBALIZED BY PATIENT'S NIECE. PATIENT IS TO CONSULTING ANALYST PRESCRIPTIONS TOMORROW MORNING. PERSONAL BELONGINGS OF PATIENT GATHERED AND GIVEN TO PATIENT. PATIENT ESCORTED VIA WHEELCHAIR BY MONKEY BREEDER. PATIENT DISCHARGED NOW AT 1150.
--- NOTE | 2024-11-07 15:25 | DS ---
Discharge Summary Hospital Course Summary: 59-year-old male presents in ED with chief complaints of general body weakness. Patient reports not feeling well symptoms started five days ago. He started with a cough with fevers and chills patient reports taking Tylenol for fever and Tessalon Perles for cough. The day of admission he fell very weak with persistent productive cough and chills hes symptoms have progressed to worse and decided to come to ED for further evaluation and treatment. Patient reports receiving his influenza vaccine last year, has received COVID-19 vaccine x2 doses. Denies chest pain, palpitations, dizziness, GI symptoms. X-ray chest consistent with bilateral infiltrates concerning for pneumonia. Negative influenza a and B, and COVID19. Patient was admitted started on empiric antibiotics and pulmonology was consulted. By hospital day three he had been on room air for more than 24 hours, his cough had largely resolved and he was cleared for discharge by all services. He will be discharged back home . [employer]): Pulmonology Procedure(s): PORTABLE CHEST RADIOGRAPH INDICATION: Assess infiltrates COMPARISON: 11/04/2024 FINDINGS/IMPRESSION: monitoring and evaluation advisor leads overlie the field of view. Stable heart size without pulmonary vascular congestion. Unchanged left lung airspace disease, without pneumothorax. Assessment/Plan: acute resp failure with hypoxia POA Sepsis lactic acid 3.4 temperature 102 heart rate 120, without shock, resolved POA Multifocal Pneumonia POA UTI POA cardiomegaly POA Morbid obesity BMI 64 POA electrolytes derangement: Hypo kalemia POA Diabetes with hyperglycemia POA Essential hypertension uncontrolled POA suspecting AUDREY POA Discharge Instructions: Follow up with PCP in 3-7 days Follow up with pulmonology in 1-2 weeks Home Medications: Active Scripts Albuterol Sulfate (Ventolin Hfa) 90 Mcg Hfa.aer.ad, 2 PUFF IH Q4HPRN PRN for wheezing for 30 Days, #18 GM 0 Refills Prov:LAURA AGUILAR MD 11/07/24 Azithromycin (Azithromycin) 500 Mg Tablet, 1 TAB PO DAILY for 5 Days, #5 TAB 0 Refills Prov:LAURA AGUILAR MD 11/07/24 Prednisone (Prednisone) 20 Mg Tablet, 40 MG PO DAILY for 7 Days, #14 TAB Prov:LAURA AGUILAR MD 11/07/24 Reported Medications Insulin Glargine,Hum.rec.anlog (Lantus Solostar) 100 Unit/Ml (3 Ml) Insuln.pen, 20 UNIT SQ HS for 30 Days, ML 0 Refills 11/05/24 Aspirin (Aspirin) 81 Mg Tab.chew, 81 MG PO DAILY, TAB.CHEW 11/05/24 Metformin HCl (Metformin HCl) 1,000 Mg Tablet, 1000 MG PO BIDAC, TAB 11/05/24 Atorvastatin Calcium (Atorvastatin Calcium) 80 Mg Tablet, 80 MG PO HS, TAB 11/05/24 Lisinopril (Lisinopril) 2.5 Mg Tablet, 2.5 MG PO DAILY, TAB 11/05/24 Diltiazem HCl (Diltiazem ER) 180 Mg Capsule.er, 180 MG PO DAILY, CAP 11/05/24 Sitagliptin Phosphate (Januvia) 50 Mg Tablet, 50 MG PO DAILY, TAB 11/05/24 Levothyroxine Sodium (Levothyroxine) 100 Mcg Capsule, 100 MCG PO ACBKFST, CAP 11/05/24 Empagliflozin (Jardiance) 25 Mg Tablet, 25 MG PO DAILY, TAB 11/05/24 Discontinued Scripts Lidocaine (Lidoderm Patch 5%) 5 % Patch, 1 PATCH TP DAILY for 5 Days, #5 PATCH 0 Refills may wear up to 12 hours Prov:BALA ASKEW MD 05/27/24 Ibuprofen (Ibuprofen 800 mg Tab) 800 Mg Tab, 800 MG PO Q6H PRN for PAIN, #30 TAB 0 Refills Prov:KIMBERLY LANGE MD 01/03/24 Cyclobenzaprine HCl (Cyclobenzaprine HCl) 10 Mg Tablet, 10 MG PO HS, #7 TAB 0 Refills Prov:KIMBERLY LANGE MD 01/03/24 Ibuprofen (Motrin/Advil) 800 Mg Tab, 800 MG PO TID, #30 TAB Prov:KIET CALABRESE MD 10/20/22 Omeprazole (Omeprazole) 40 Mg Capsule.dr, 40 MG PO DAILY, #30 CAP Prov:KIET CALABRESE MD 10/20/22 Cyclobenzaprine HCl (Flexeril) 10 Mg Tab, 10 MG PO BID, #30 TAB Prov:CISCO MARCIAL 12/11/21 Naproxen (Naprosyn) 500 Mg Tablet, 500 MG PO BIDPC, #30 TAB Prov:ANA MARCIALAlbino BIRD 12/11/21 Acetaminophen (Tylenol) 325 Mg Tablet, 650 MG PO Q4HPRN, #50 TAB Prov:ROSALINA MARCIALTIFFANIE BIRD 12/01/21 Cyclobenzaprine HCl (Flexeril) 10 Mg Tab, 10 MG PO BID, #30 TAB Prov:ROSALINA MARCIALTIFFANIE BIRD 12/01/21 Hyoscyamine Sulfate (Levsin-Sl) 0.125 Mg Tab.subl, 0.125 MG SL TID PRN for abd p, #15 TAB.SL 0 Refills Prov:KIMBERLY LANGE MD 09/23/21 Famotidine (Pepcid) 20 Mg Tablet, 20 MG PO BID, #30 TAB 0 Refills Prov:KIMBERLY LANGE MD 09/23/21 New Medications: Albuterol Sulfate (Ventolin Hfa) 90 Mcg Hfa.aer.ad 2 PUFF IH Q4HPRN PRN for wheezing for 30 Days, #18 GM 0 Refills Azithromycin (Azithromycin) 500 Mg Tablet 1 TAB PO DAILY for 5 Days, #5 TAB 0 Refills Prednisone (Prednisone) 20 Mg Tablet 40 MG PO DAILY for 7 Days, #14 TAB Continued Medications: Aspirin (Aspirin) 81 Mg Tab.chew 81 MG PO DAILY, TAB.CHEW Atorvastatin Calcium (Atorvastatin Calcium) 80 Mg Tablet 80 MG PO HS, TAB Diltiazem HCl (Diltiazem ER) 180 Mg Capsule.er 180 MG PO DAILY, CAP Empagliflozin (Jardiance) 25 Mg Tablet 25 MG PO DAILY, TAB Insulin Glargine,Hum.rec.anlog (Lantus Solostar) 100 Unit/Ml (3 Ml) Insuln.pen 20 UNIT SQ HS for 30 Days, ML 0 Refills Levothyroxine Sodium (Levothyroxine) 100 Mcg Capsule 100 MCG PO ACBKFST, CAP Lisinopril (Lisinopril) 2.5 Mg Tablet 2.5 MG PO DAILY, TAB Metformin HCl (Metformin HCl) 1,000 Mg Tablet 1000 MG PO BIDAC, TAB Sitagliptin Phosphate (Januvia) 50 Mg Tablet 50 MG PO DAILY, TAB Time spent arranging discharge: 31-60 minutes LAURA AGUILAR MD November 07, 2024 15:25
== END 2024-11-07 11:55 | disposition home or self-care (01) | DRG 720 ==
LOC: EDH 13:16 → EDHIP 13:17 → UNDOADMIN 15:41 → EDHIP 15:41 → UNDOADMIN 15:42 → 2AH 22:15
PROVIDERS: ADMIT Hospitalist; ATTEND Hospitalist
DX: A41.9 Sepsis, unspecified organism (principal); J96.01 Acute respiratory failure with hypoxia; E87.20 Acidosis, unspecified; J18.9 Pneumonia, unspecified organism; Z68.44 Body mass index [BMI] 60.0-69.9, adult; Z20.822 Contact with and (suspected) exposure to COVID-19; N30.00 Acute cystitis without hematuria; G47.33 Obstructive sleep apnea (adult) (pediatric); E11.65 Type 2 diabetes mellitus with hyperglycemia; I11.9 Hypertensive heart disease without heart failure; E87.6 Hypokalemia; E78.5 Hyperlipidemia, unspecified; E66.01 Morbid (severe) obesity due to excess calories; Z79.899 Other long term (current) drug therapy; Z83.3 Family history of diabetes mellitus; Z82.49 Family history of ischemic heart disease and other diseases of the circulatory system; Z91.199 Patient's noncompliance with other medical treatment and regimen due to unspecified reason
CPT/HCPCS: 36415; 71045; 80048; 80053; 81001; 82550; 82948; 83036; 83605; 83735; 84132; 84145; 84484; 85025; 85610; 85730; 87040; 87086; 87426; 87804; 87880; 93005; 94640; 94664; 94667; 94668; 94760; 96374; 99285; G0378; J0456; J0696; J1644; J1815; J2543; J2919; J3475; J3480; J3490; J7030

== ENCOUNTER 2025-03-12 08:26 | Emergency (ER) | payer MEDICAID ==
[~2025-03-12] VITALS: Ht 167.6 cm; Wt 161.0 kg
[~2025-03-12 08:26] MED LIST changes: -ACET-2247 PO; +ALBU18HF7 IH; +ASPI-1197 PO; +ATOR-2 PO; +AZIT500T4 PO; -CYCL-309 PO; -CYCL10TA16 PO; +DILT180C77 PO; +EMPA25TA PO; -FAMO-136 PO; -HYOS0.124 SL; -IBUP-1493 PO; -IBUP-2077 PO; +INSU3INS3 SQ; +LEVO100C5 PO; -LIDOP TP; +LISI2.5T13 PO; +METF-446 PO; -NAPR-1180 PO; -OMEP40CA21 PO; +PRED20TA3 PO; +SITA50TA PO
[2025-03-12 09:06] LABS: APPEARANCE,URINE CLEAR (CLEAR); GLUCOSE, URINE (UA) >=1000 mg/dL (NEGATIVE); LEUKOCYTE ESTERASE ,URINE 75 Leu/uL (NEGATIVE); NITRATE,URINE NEGATIVE (NEGATIVE); OCCULT BLOOD,URINE NEGATIVE (NEGATIVE)
[2025-03-12 09:09] LABS: ADD UA MICROSCOPIC YES
[2025-03-12 09:17] LABS: SQUAMOUS EPITHELIAL CELL,UR RARE /HPF (0-2)
[2025-03-12 09:25] LABS: IMMATURE GRANULOCYTE ABSOLUTE 0.03 K/uL (0-1); NUCLEATED RED BLOOD CELLS 0.0 % (0.0-0.19); PLATELET COUNT (AUTO) 151 K/uL (130-400); RED BLOOD CELL COUNT(AUTO) 5.25 MIL/uL (4.50-6.20); RED CELL DISTRIBUTION WIDTH 12.7 % (11.0-15.5); WHITE BLOOD COUNT (AUTO) 6.9 K/uL (4.8-10.8)
[2025-03-12 09:36] LABS: CREATININE 0.7 mg/dL (0.5-1.3); GLOMERULAR FILTR. RATE CALC 106.0 mL/min (>90); GLUCOSE,RANDOM 172.0 mg/dL (70-105); SODIUM SERUM 136.0 mmol/L (136-145); UREA NITROGEN, BLOOD 16.0 mg/dL (7-18)
[2025-03-12] MEDS ORDERED: NITR100C4 PO (10:23)
--- NOTE | 2025-03-12 10:23 | ERN ---
ED Note History of Present Illness Stated Complaint: PAINFULL URINATION Chief Complaint: Painful Urination Time Seen by MD: 08:35 Dictation: 59-year-old male presenting to the emergency department with pain with urination and concern for urinary tract infection history of similar episodes patient denies fever chest pain shortness of breath or generalized weakness no flank pain. Allergies: Coded Allergies: No Known Allergies (Unverified Allergy, Unknown, 04/25/19) Home Meds Active Scripts Albuterol Sulfate (Ventolin Hfa) 90 Mcg Hfa.aer.ad, 2 PUFF IH Q4HPRN PRN for wheezing for 30 Days, #18 GM 0 Refills Prov:LAURA AGUILAR MD 11/07/24 Azithromycin (Azithromycin) 500 Mg Tablet, 1 TAB PO DAILY for 5 Days, #5 TAB 0 Refills Prov:LAURA AGUILAR MD 11/07/24 Prednisone (Prednisone) 20 Mg Tablet, 40 MG PO DAILY for 7 Days, #14 TAB Prov:LAURA AGUILAR MD 11/07/24 Reported Medications Insulin Glargine,Hum.rec.anlog (Lantus Solostar) 100 Unit/Ml (3 Ml) Insuln.pen, 20 UNIT SQ HS for 30 Days, ML 0 Refills 11/05/24 Aspirin (Aspirin) 81 Mg Tab.chew, 81 MG PO DAILY, TAB.CHEW 11/05/24 Metformin HCl (Metformin HCl) 1,000 Mg Tablet, 1000 MG PO BIDAC, TAB 11/05/24 Atorvastatin Calcium (Atorvastatin Calcium) 80 Mg Tablet, 80 MG PO HS, TAB 11/05/24 Lisinopril (Lisinopril) 2.5 Mg Tablet, 2.5 MG PO DAILY, TAB 11/05/24 Diltiazem HCl (Diltiazem ER) 180 Mg Capsule.er, 180 MG PO DAILY, CAP 11/05/24 Sitagliptin Phosphate (Januvia) 50 Mg Tablet, 50 MG PO DAILY, TAB 11/05/24 Levothyroxine Sodium (Levothyroxine) 100 Mcg Capsule, 100 MCG PO ACBKFST, CAP 11/05/24 Empagliflozin (Jardiance) 25 Mg Tablet, 25 MG PO DAILY, TAB 11/05/24 Past Medical History Past Medical History: Diabetes-Type II, Hypertension Additional Past Medical Hx: MR Surgical History: None Surgical History Other: LT SHOULDER SX Family History: Negative Social History: Negative Review of System Dictation Constitutional: Negative for fever,chills, and weight loss Eyes: Negative for injury, pain,redness, and discharge ENT: Negative for injury,pain or swelling Cardiovascular: Negative for chest pain, palpitations, and edema Respiratory: Negative for shortness of breath, cough, and wheezing, Abdomen/GI: Negative for abdominal pain, nausea, vomiting, diarrhea, and const ipation Back: Negative for injury and pain : Per HPI MS/Extremity: Negative for injury and deformity Skin: Negative for rash, and discoloration Neuro: Negative for headache, weakness, numbness, tingling, and seizure Psych: Negative for suicide ideation, homicidal ideation, and hallucinations Initial Vital Sign VS Vital Signs Date Time Temp Pulse Resp B/P (MAP) Pulse Ox O2 Delivery O2 Flow Rate FiO2 03/12/25 08:27 98.4 83 18 138/86 96 Room Air 03/12/25 08:43 0 21 Physical Exam Dictation General: awake, alert, NAD Head/Face: Normocephalic, atraumatic Eyes: PERRL, EOMI, vision at baseline ENT: oral cavity clear, TMs clear, no signs of infection Neck: Trachea midline, supple, no nuchal rigidity Cardiovascular: RRR, normal S1/S2, No MRGs, no JVD Respiratory: CTAB, no respiratory distress, No rales or wheezes Abdomen: Soft, non-tender, non-distended, normal bowel sounds, no guarding or rebound. Skin: Warm, dry, normal turgor, no rash MS/Extremity: Pulses equal, no cyanosis, neurovascular intact, FROM Neuro: COAx4, GCS 15, strength 5/5, CN 2-12 intact, normal cerebellar exam, normal gait, Psych: Normal behavior, mood, and affect normal Results (Laboratory/Radiology) Laboratory/Radiology Laboratory Tests Test 03/12/25 08:41 03/12/25 09:13 Urine Color LIGHT-YELLOW (YELLOW) Urine Appearance CLEAR (CLEAR) Urine pH 5.5 (5.0-8.0) Urine Specific [place] 1.032 (1.001-1.031) Urine Protein 10 mg/dL (NEGATIVE) H Urine Glucose (UA) >=1000 mg/dL (NEGATIVE) H Urine Ketones NEGATIVE mg/dL (NEGATIVE) Urine Occult Blood NEGATIVE (NEGATIVE) Urine Nitrate NEGATIVE (NEGATIVE) Urine Bilirubin NEGATIVE mg/dL (NEGATIVE) Urine Urobilinogen 0.2 mg/dL (0.2-1.0) Urine Leukocyte Esterase 75 Jim/uL (NEGATIVE) H Urine RBC 2-5 /HPF (0-1) H Urine WBC 26-50 /HPF (0-1) H Urine Squamous Epithelial Cells RARE /HPF (0-2) Urine Bacteria RARE /HPF (None Seen) White Blood Count 6.9 K/uL (4.8-10.8) Red Blood Count 5.25 MIL/uL (4.50-6.20) Hemoglobin 14.8 g/dL (14.0-18.0) Hematocrit 44.7 % (42-54) Mean Corpuscular Volume 85.1 fL (79-99) Mean Corpuscular Hemoglobin 28.2 pg (27.0-33.0) Mean Corpuscular Hemoglobin Concent 33.1 g/dL (32.0-36.0) Red Cell Distribution Width 12.7 % (11.0-15.5) Platelet Count 151 K/uL (130-400) Mean Platelet Volume 9.1 fL (7.5-10.5) Immature Granulocyte % (Auto) 0.4 % (0-1) Neutrophils (%) (Auto) 76.6 % (40.0-77.0) Lymphocytes (%) (Auto) 9.1 % (21.0-51.0) L Monocytes (%) (Auto) 12.6 % (3.0-13.0) Eosinophils (%) (Auto) 0.9 % (0.0-8.0) Basophils (%) (Auto) 0.4 % (0.0-5.0) Neutrophils # (Auto) 5.3 K/uL (1.8-7.7) Lymphocytes # (Auto) 0.6 K/uL (1.0-4.8) L Monocytes # (Auto) 0.9 K/uL (0.1-1.0) Eosinophils # (Auto) 0.06 K/uL (0.00-0.70) Basophils # (Auto) 0.03 K/uL (0.00-0.20) Absolute Immature Granulocyte (auto 0.03 K/uL (0-1) Nucleated Red Blood Cells 0.0 % (0.0-0.19) White Cell Morphology Comment See comments Sodium Level 136 mmol/L (136-145) Potassium Level 3.9 mmol/L (3.5-5.1) Chloride Level 100 mmol/L (101-111) L Carbon Dioxide Level 27 mmol/L (21-32) Blood Urea Nitrogen 16 mg/dL (7-18) Creatinine 0.7 mg/dL (0.5-1.3) Glomerular Filtration Rate Calc 106 mL/min (>90) Random Glucose 172 mg/dL (70-105) H Total Calcium 9.0 mg/dL (8.5-10.1) Labs Reviewed?: Yes ED Course ED Course Orders Procedure Category Date Status Time Urinalysis Profile LAB 03/12/25 Complete 08:43 Basic Metabolic Panel LAB 03/12/25 Complete 09:02 Cbc With Differential LAB 03/12/25 Complete 09:02 Culture Urine RUTHIE 03/12/25 Logged 09:09 Ceftriaxone 1g Vial PHA 03/12/25 Logged (Rocephine 1g Inj) 10:30 Vital Signs Date Time Temp Pulse Resp B/P (MAP) Pulse Ox O2 Delivery O2 Flow Rate FiO2 03/12/25 08:43 98.1 85 13 134/80 96 Room Air* 0 21 03/12/25 08:27 98.4 83 18 138/86 96 Room Air Medical Decision Making MDM MDM: Differential diagnosis: Rationale: Tests considered and ordered secondary to shared decision making include: Previous outside records reviewed: Old ER visits. Risk of complication and/or morbidity or mortality of patient management: None Medications-Per medication reconciliation Need for hospitalization: Patient does not meet criteria for hospitalization. Need for emergency major/minor surgery: No There are no social concerns with this patient. Prescription drug management Prescriptions will include symptomatic care Patient's prior external medical records from other ER visits were reviewed by me as indicated. Prior testing and results from previous visits were reviewed. Prior tests were taken into account with medical decision making and resource utilization, independent historian/historians were used to obtain complete medical history. I independently interpreted the test that were performed, results were reviewed by me and considered findings on radiology if ordered. Medical management and examination interpretation discussions were had by me with other qualified healthcare professionals as indicated for the patient's c are. 59-year-old with dysuria UTI, stable exam no pyelo, no fever no white count creatinine stable prescriptions given DX & DISP Disposition: Discharge Departure Impression: Primary Impression: UTI (urinary tract infection) Condition: Stable Scripts Nitrofurantoin Monohyd/M-Cryst (Macrobid 100 mg Capsule) 100 Mg Capsule 1 CAP PO BID for 7 Days, #14 CAP 0 Refills Prov: BALA ASKEW MD 03/12/25 Referrals: ELLEN MEDINA (PCP) BALA ASKEW MD Mar 12, 2025 10:23
[2025-03-12 11:33] VITALS: BP 119/76; PULSE 77; RESP 19; TEMP 98; O2SAT 96
--- NOTE | 2025-03-12 11:33 | NUR ---
DC PATIENT WAS DC'D BY DR ASKEW, I EXPLAINED TO PATIENT TO FOLLOW UP WITH PCP, PROVIDED INFO BASED ON DIAGNOSIS, PRESCRIPTIONS AND ANSWERED ANY FOLLOW UP QUESTIONS PATIENT AMBULATED OUT OF ED, NO COMPLICATIONS
== END 2025-03-12 11:35 | disposition home or self-care (01) ==
LOC: EDH 08:26
DX: N39.0 Urinary tract infection, site not specified (principal); E11.9 Type 2 diabetes mellitus without complications; I10 Essential (primary) hypertension; Z79.52 Long term (current) use of systemic steroids; Z79.82 Long term (current) use of aspirin; Z79.84 Long term (current) use of oral hypoglycemic drugs; Z79.899 Other long term (current) drug therapy
CPT/HCPCS: 99283; 80048; 85025; 87086 ×2; 87186; 81001; 36415; 96372; J0696

== ENCOUNTER 2025-04-29 10:53 | Emergency (ER) | payer MEDICAID ==
[~2025-04-29] VITALS: Ht 167.6 cm; Wt 181.4 kg
[~2025-04-29 10:53] MED LIST changes: +NITR100C4 PO
[2025-04-29 11:49] LABS: CREATININE 0.7 mg/dL (0.5-1.3); GLOMERULAR FILTR. RATE CALC 106.0 mL/min (>90); GLUCOSE,RANDOM 167.0 mg/dL (70-105); SODIUM SERUM 130.0 mmol/L (136-145); UREA NITROGEN, BLOOD 13.0 mg/dL (7-18)
[2025-04-29 11:58] LABS: IMMATURE GRANULOCYTE ABSOLUTE 0.03 K/uL (0-1); NUCLEATED RED BLOOD CELLS 0.0 % (0.0-0.19); PLATELET COUNT (AUTO) 171 K/uL (130-400); RED BLOOD CELL COUNT(AUTO) 5.54 MIL/uL (4.50-6.20); RED CELL DISTRIBUTION WIDTH 13.2 % (11.0-15.5); WHITE BLOOD COUNT (AUTO) 7.3 K/uL (4.8-10.8)
[2025-04-29 11:58] LABS: APPEARANCE,URINE CLEAR (CLEAR); GLUCOSE, URINE (UA) 30 mg/dL (NEGATIVE); LEUKOCYTE ESTERASE ,URINE 75 Leu/uL (NEGATIVE); NITRATE,URINE NEGATIVE (NEGATIVE); OCCULT BLOOD,URINE NEGATIVE (NEGATIVE)
[2025-04-29 12:10] LABS: SQUAMOUS EPITHELIAL CELL,UR RARE /HPF (0-2)
--- NOTE | 2025-04-29 12:32 | ERN ---
General Chief Complaint: Back Pain-No Injury Stated Complaint: CHRONIC BACK PAIN Time Seen by MD: 10:57 Source: patient History of Present Illness Initial Comments Patient is a 59-year-old gentleman coming in complaining of right lower flank pain right lower abdominal discomfort. Per patient this has been ongoing for a couple of days. He does state he has a history of back issues in frequently presents with a back pain but never this intense that radiates to the front. Allergies: Coded Allergies: No Known Allergies (Unverified Allergy, Unknown, 04/25/19) Home Meds Active Scripts Nitrofurantoin Monohyd/M-Cryst (Macrobid 100 mg Capsule) 100 Mg Capsule, 1 CAP PO BID for 7 Days, #14 CAP 0 Refills Prov:BALA ASKEW MD 03/12/25 Albuterol Sulfate (Ventolin Hfa) 90 Mcg Hfa.aer.ad, 2 PUFF IH Q4HPRN PRN for wheezing for 30 Days, #18 GM 0 Refills Prov:LAURA AGUILAR MD 11/07/24 Azithromycin (Azithromycin) 500 Mg Tablet, 1 TAB PO DAILY for 5 Days, #5 TAB 0 Refills Prov:LAURA AGUILAR MD 11/07/24 Prednisone (Prednisone) 20 Mg Tablet, 40 MG PO DAILY for 7 Days, #14 TAB Prov:LAURA AGUILAR MD 11/07/24 Reported Medications Insulin Glargine,Hum.rec.anlog (Lantus Solostar) 100 Unit/Ml (3 Ml) Insuln.pen, 20 UNIT SQ HS for 30 Days, ML 0 Refills 11/05/24 Aspirin (Aspirin) 81 Mg Tab.chew, 81 MG PO DAILY, TAB.CHEW 11/05/24 Metformin HCl (Metformin HCl) 1,000 Mg Tablet, 1000 MG PO BIDAC, TAB 11/05/24 Atorvastatin Calcium (Atorvastatin Calcium) 80 Mg Tablet, 80 MG PO HS, TAB 11/05/24 Lisinopril (Lisinopril) 2.5 Mg Tablet, 2.5 MG PO DAILY, TAB 11/05/24 Diltiazem HCl (Diltiazem ER) 180 Mg Capsule.er, 180 MG PO DAILY, CAP 11/05/24 Sitagliptin Phosphate (Januvia) 50 Mg Tablet, 50 MG PO DAILY, TAB 11/05/24 Levothyroxine Sodium (Levothyroxine) 100 Mcg Capsule, 100 MCG PO ACBKFST, CAP 11/05/24 Empagliflozin (Jardiance) 25 Mg Tablet, 25 MG PO DAILY, TAB 11/05/24 Past Medical History Past Medical History: Diabetes-Type II, Hypertension Medical History Other: MR Past Surgical History: None Surgical History Other: LT SHOULDER SX Family History Family History: Negative Social History Social History: Negative ROS Dictation CONSTITUTIONAL: No chills, no fever, no weakness, no diaphoresis, no malaise. HEAD/FACE: No signs of trauma. EENT: No eye pain, no blurred vision, no tearing, no double vision, no ear pain, no ear discharge, no nose pain, no nasal congestion, no throat pain, no throat swelling, no mouth pain. RESPIRATORY: No cough, no orthopnea, no SOB, no stridor, no wheezing. CARDIOVASCULAR: No chest pain, no edema, no palpitations, no syncope. GASTROINTESTINAL/ABDOMINAL: abdominal pain, no constipation, no diarrhea, no nausea, no vomiting. GENITOURINARY: No abnormal discharge, no dysuria, no frequent urination, no hematuria. No complaints of pain in the genitals. MUSCULOSKELETAL: No back pain, no gout, no joint pain, no joint swelling, no muscle pain, no muscle stiffness, no neck pain. INTEGUMENTARY: No change in color, no change in hair/nails, no dryness, no lesion, no lumps, no rash. NEUROLOGICAL/PSYCH: No anxiety, not depressed, no emotional problem, no headache, no numbness, no pre-existing deficit, no history of seizures, no tremors, no weakness. HEMATOLOGIC/LYMPHATIC: Not anemic, no history of blood clots, no apparent bleeding, no bruising, glands not swollen. All Systems Negative, Except as Noted. Results Laboratory and Microbiology Lab and Micro Result Laboratory Tests Test 04/29/25 11:32 04/29/25 11:45 White Blood Count 7.3 K/uL (4.8-10.8) Red Blood Count 5.54 MIL/uL (4.50-6.20) Hemoglobin 15.6 g/dL (14.0-18.0) Hematocrit 46.9 % (42-54) Mean Corpuscular Volume 84.7 fL (79-99) Mean Corpuscular Hemoglobin 28.2 pg (27.0-33.0) Mean Corpuscular Hemoglobin Concent 33.3 g/dL (32.0-36.0) Red Cell Distribution Width 13.2 % (11.0-15.5) Platelet Count 171 K/uL (130-400) Mean Platelet Volume 9.2 fL (7.5-10.5) Immature Granulocyte % (Auto) 0.4 % (0-1) Neutrophils (%) (Auto) 77.7 % (40.0-77.0) H Lymphocytes (%) (Auto) 11.9 % (21.0-51.0) L Monocytes (%) (Auto) 9.6 % (3.0-13.0) Eosinophils (%) (Auto) 0.1 % (0.0-8.0) Basophils (%) (Auto) 0.3 % (0.0-5.0) Neutrophils # (Auto) 5.7 K/uL (1.8-7.7) Lymphocytes # (Auto) 0.9 K/uL (1.0-4.8) L Monocytes # (Auto) 0.7 K/uL (0.1-1.0) Eosinophils # (Auto) 0.01 K/uL (0.00-0.70) Basophils # (Auto) 0.02 K/uL (0.00-0.20) Absolute Immature Granulocyte (auto 0.03 K/uL (0-1) Nucleated Red Blood Cells 0.0 % (0.0-0.19) Sodium Level 130 mmol/L (136-145) L Potassium Level 3.4 mmol/L (3.5-5.1) L Chloride Level 95 mmol/L (101-111) L Carbon Dioxide Level 27 mmol/L (21-32) Blood Urea Nitrogen 13 mg/dL (7-18) Creatinine 0.7 mg/dL (0.5-1.3) Glomerular Filtration Rate Calc 106 mL/min (>90) Random Glucose 167 mg/dL (70-105) H Total Calcium 8.5 mg/dL (8.5-10.1) Urine Color YELLOW (YELLOW) Urine Appearance CLEAR (CLEAR) Urine pH 5.5 (5.0-8.0) Urine Specific [place] 1.031 (1.001-1.031) Urine Protein 20 mg/dL (NEGATIVE) H Urine Glucose (UA) 30 mg/dL (NEGATIVE) H Urine Ketones NEGATIVE mg/dL (NEGATIVE) Urine Occult Blood NEGATIVE (NEGATIVE) Urine Nitrate NEGATIVE (NEGATIVE) Urine Bilirubin NEGATIVE mg/dL (NEGATIVE) Urine Urobilinogen 0.2 mg/dL (0.2-1.0) Urine Leukocyte Esterase 75 Jim/uL (NEGATIVE) H Urine RBC 2-5 /HPF (0-1) H Urine WBC 6-10 /HPF (0-1) H Urine Squamous Epithelial Cells RARE /HPF (0-2) Urine Bacteria None /HPF (None Seen) EKG/XRAY/US/CT/MRI CT Scan Comment [place] [id number] [place] [id number] IMAGING REPORT Signed PATIENT: ALYSE ODONNELL MR#: [id number] : 1965 SEX: M AGE: 59 LOCATION: [facility] ORDER [id number] STATUS: [facility] REPORT#: [id number] SERVICE [id number] REASON: right flank pain ORDERING PHYSICIAN: BAM HUYNH MD PROCEDURE: ABD PEL WO - CT ABDOMEN/PELVIS W/O CONTRAST EXAM: CT Abdomen and Pelvis without IV contrast CLINICAL HISTORY: right flank pain TECHNIQUE: Axial computed tomography images of the abdomen and pelvis without intravenous contrast. CT scan performed according to ALARA. Automated exposure control used during exam. CONTRAST: without intravenous contrast. COMPARISON: None provided. FINDINGS: Lung bases are clear. There is no focal abnormality appreciated within the liver, gallbladder, either adrenal gland, either kidney, spleen, or pancreas. Bowel loops are normal in caliber without evidence of obstruction, ileus, or obvious bowel wall thickening. There is no CT evidence of acute appendicitis. The bladder is underdistended, limiting evaluation. The prostate is either atrophic or surgically absent, clinical correlation is advised. Seminal vesicles appear normal in caliber. There is no ascites or lymphadenopathy. Atherosclerotic vascular calcifications are noted. There is no acute or suspicious osseous abnormality. IMPRESSION: No acute intra-abdominal or pelvic abnormality. Specifically there is no renal calculus or hydronephrosis. /[place] DICTATED BY: JOSE C MCFARLAND Jr., MD DATE: 04/29/251519 ELECTRONICALLY SIGNED BY: JOSE C MCFARLAND Jr., MD DATE: 04/29/251519 [facility] MDM: Differential diagnosis: Abdominal pain, abdominal muscle wall pain, herniated disc, chronic back pain, Rationale: Tests considered and ordered secondary to shared decision making include: Previous outside records reviewed: Old ER visits. Risk of complication and/or morbidity or mortality of patient management: None Medications-Per medication reconciliation Need for hospitalization: Patient does not meet criteria for hospitalization. Need for emergency major/minor surgery: No In his is a 59-year-old male coming in complaining of right abdominal right back pain. Patient has a history of chronic back pain CT did not disclose acute findings. Patient will be discharged in stable condition with a diagnosis of chronic back pain with abdominal muscle wall strain. ED Course Orders Procedure Category Date Status Time Cbc With Differential LAB 04/29/25 Complete 11:22 Basic Metabolic Panel LAB 04/29/25 Complete 11:22 Urinalysis LAB 04/29/25 Complete W/Microscopic 11:22 Ct Abdomen/Pelvis W/O CT 04/29/25 Resulted Contrast 11: Culture Urine RUTHIE 04/29/25 In Process 11:59 Vital Signs Date Time Temp Pulse Resp B/P (MAP) Pulse Ox O2 Delivery O2 Flow Rate FiO2 04/29/25 13:13 98.4 82 18 124/70 98 Room Air* 0 21 04/29/25 11:16 98.4 82 18 124/70 98 Room Air* 0 21 04/29/25 10:59 98.8 89 18 126/77 98 Room Air DX & DISP Disposition: Discharge Departure Impression: Primary Impression: Strain of mid-back Additional Impressions: Sciatica, Abdominal wall strain Condition: Stable Additional Instructions: FOLLOW-UP WITH PRIMARY CARE PROVIDER IN 1 TO 2 DAYS. TAKE MEDICATIONS DIRECTED HERE IN THE EMERGENCY ROOM. OKAY TO CONTINUE HOME MEDICATIONS UNLESS OTHERWISE DISCUSSED DURING YOUR VISIT IN THE EMERGENCY ROOM TODAY. RETURN TO YOUR NEAREST EMERGENCY ROOM IF SYMPTOMS WORSEN OR IF THERE IS NO IMPROVEMENT. CALL 911 IF YOU NEED IMMEDIATE ASSISTANCE. TAKE TYLENOL FDSL-HPO-APJBAAT NEEDED AND IF NO CONTRAINDICATIONS ARE PRESENT. INCREASE ORAL HYDRATION. A WOUND CULTURE OR URINE CULTURE WAS ORDERED HERE IN THE EMERGENCY ROOM DEPARTMENT PLEASE FOLLOW-UP WITH PRIMARY CARE PROVIDER AND ADVISE THEM TO GET REPORTS FROM OUR FACILITY. IF YOU HAD ANY ALTAGRACIA WRAP/SPLINTS THAT WERE APPLIED HERE, PLEASE DO NOT REMOVE THEM UNTIL YOU SEE YOUR PRIMARY CARE OR SPECIALTY. Referrals: Referrals: ELLEN MEDINA (PCP) Time of Disposition: 14:26 BAM HUYNH MD Apr 29, 2025 12:32
--- NOTE | 2025-04-29 14:20 | HMCIMG ---
EXAM: CT Abdomen and Pelvis without IV contrast CLINICAL HISTORY: right flank pain TECHNIQUE: Axial computed tomography images of the abdomen and pelvis without intravenous contrast. CT scan performed according to ALARA. Automated exposure control used during exam. CONTRAST: without intravenous contrast. COMPARISON: None provided. FINDINGS: Lung bases are clear. There is no focal abnormality appreciated within the liver, gallbladder, either adrenal gland, either kidney, spleen, or pancreas. Bowel loops are normal in caliber without evidence of obstruction, ileus, or obvious bowel wall thickening. There is no CT evidence of acute appendicitis. The bladder is underdistended, limiting evaluation. The prostate is either atrophic or surgically absent, clinical correlation is advised. Seminal vesicles appear normal in caliber. There is no ascites or lymphadenopathy. Atherosclerotic vascular calcifications are noted. There is no acute or suspicious osseous abnormality. IMPRESSION: No acute intra-abdominal or pelvic abnormality. Specifically there is no renal calculus or hydronephrosis. /[place]
[2025-04-29 14:24] VITALS: BP 127/68; PULSE 80; RESP 18; TEMP 98.4; O2SAT 98
[2025-04-29] MEDS: ORPHENADRINE 60MG/2ML IM ONE (14:33)
[2025-04-29] MEDS: TRIAMCINOLONE ACETONIDE 40 MG/ML 1ML VIAL IM ONE (14:34)
== END 2025-04-29 14:49 | disposition home or self-care (01) ==
LOC: EDH 10:53
DX: S29.012A Strain of muscle and tendon of back wall of thorax, initial encounter (principal); S39.011A Strain of muscle, fascia and tendon of abdomen, initial encounter; M54.30 Sciatica, unspecified side; I10 Essential (primary) hypertension; E11.9 Type 2 diabetes mellitus without complications; Z79.52 Long term (current) use of systemic steroids; Z79.82 Long term (current) use of aspirin; Z79.84 Long term (current) use of oral hypoglycemic drugs; Z79.899 Other long term (current) drug therapy; X58.XXXA Exposure to other specified factors, initial encounter; Y93.89 Activity, other specified; Y92.89 Other specified places as the place of occurrence of the external cause; Y99.8 Other external cause status
CPT/HCPCS: 99285; 74176; 80048; 85025; 87086; 81001; 36415; 96372 ×2; J3301; J2360